=== PATIENT | male | born 1965 | race African-American/Black ===

== ENCOUNTER 2023-04-25 23:28 | Emergency (ER) | payer MEDICAID ==
[~2023-04-25] VITALS: Ht 177.8 cm; Wt 100.0 kg
[~2023-04-25 23:28] MED LIST: CLON0.1T2 PO; DIVA500T53 PO; RISP3TAB35 PO
[2023-04-26] MEDS ORDERED: SODIUM CHLORIDE 0.9% 1,000 ML IV ONE (01:00)
[2023-04-26 01:23] LABS: BASOPHILS % (AUTO) 0.9 % (0.0-2.0); EOSINOPHILS % (AUTO) 1.2 % (1.0-6.0); HEMATOCRIT 38.3 % (41-53); HEMOGLOBIN 12.9 g/dL (13.5-17.5); LYMPHOCYTES # (AUTO) 1.8 K/uL (1.0-4.8); MEAN CORPUSCULAR HEMOGLOBIN 31.6 pg (26.0-34.0); MEAN CORPUSCULAR HGB CONC 33.7 G/dL (31.0-37.0); MEAN CORPUSCULAR VOLUME 94 fL (80-100); MONOCYTES # (AUTO) 1.5 K/uL (0.1-1.0); NEUTROPHILS # (AUTO) 5.2 K/uL (1.8-7.7); NEUTROPHILS % (AUTO) 59.9 % (40.0-70.0); PLATELET COUNT (AUTO) 143 K/uL (150-450); RED BLOOD CELL COUNT(AUTO) 4.08 MIL/uL (4.50-5.90); RED CELL DISTRIBUTION WIDTH 14.9 % (11.5-14.5)
[2023-04-26 01:27] LABS: ANION GAP 10 mmol/L (8-16); CALCIUM, TOTAL 9.4 mg/dL (8.8-10.5); CARBON DIOXIDE 28 mmol/L (22-29); CHLORIDE 99 mmol/L (98-107); CREATININE 1.31 mg/dL (0.60-1.30); GLOMERULAR FILTR. RATE CALC > 60 mL/min (>60); GLUCOSE,RANDOM 111 mg/dL (70-110); POTASSIUM 4.5 mmol/L (3.5-5.1); SODIUM SERUM 136 mmol/L (136-145)
[2023-04-26 01:32] LABS: ALANINE AMINOTRANSFERASE 10 U/L (12-78); ALBUMIN 2.7 g/dL (3.4-5.0); ALKALINE PHOSPHATASE 83 U/L (46-116); ASPARTATE AMINOTRANSFERASE 16 U/L (15-37); TOTAL PROTEIN, SERUM 7.2 g/dL (6.4-8.2)
[2023-04-26 01:40] LABS: BILIRUBIN,TOTAL < 0.1 mg/dL (0.1-1.0)
[2023-04-26 06:14] VITALS: BP 117/67; PULSE 89; RESP 20; TEMP 97.3
== END 2023-04-26 06:23 | disposition home or self-care (01) ==
LOC: EMS 23:29
DX: R53.1 Weakness (principal); E11.9 Type 2 diabetes mellitus without complications; F41.9 Anxiety disorder, unspecified; F32.A Depression, unspecified; F20.9 Schizophrenia, unspecified; F17.210 Nicotine dependence, cigarettes, uncomplicated
CPT/HCPCS: 99285; 80053; 85025; 96360; 70450; G0480

== ENCOUNTER 2024-01-30 15:26 | Inpatient (IN) | payer MEDICAID ==
[~2024-01-30] VITALS: Ht 177.8 cm; Wt 75.0 kg
[2024-01-30] MEDS ORDERED: LEVO50 PO (16:02)
[2024-01-30] MEDS ORDERED: MELA5TAB40 PO (16:02)
[2024-01-30] MEDS ORDERED: ASPI-1444 PO (16:02)
[2024-01-30] MEDS ORDERED: QUET25TA PO (16:02)
[2024-01-30] MEDS ORDERED: CHOL25TA4 PO (16:02)
[2024-01-30] MEDS ORDERED: METO25 PO (16:02)
[2024-01-30] MEDS ORDERED: FERR325T27 PO (16:02)
[2024-01-30] MEDS ORDERED: DIPH-1130 PO (16:02)
[2024-01-30] MEDS ORDERED: QUET300T2 PO (16:02)
[2024-01-30] MEDS: LORazepam 2 MG/ML VIAL IM ONE (16:21)
[2024-01-30] MEDS: DiphenhydrAMINE HCL 50 MG/ML VIAL IM ONE (16:21)
[2024-01-30] MEDS: HALOPERIDOL LACTATE 5 MG/ML VIAL IM ONE (16:22)
[2024-01-30 16:44] LABS: COVID AG,FIA SOURCE NASAL SWAB
[2024-01-30 17:01] LABS: SARS-COV2 (COVID) ANTIGEN,FIA Negative (Negative)
[2024-01-30 19:39] LABS: BASOPHILS % (AUTO) 0.5 % (0.0-2.0); EOSINOPHILS % (AUTO) 2.4 % (1.0-6.0); HEMATOCRIT 41.6 % (41-53); HEMOGLOBIN 13.7 g/dL (13.5-17.5); LYMPHOCYTES # (AUTO) 2.8 K/uL (1.0-4.8); LYMPHOCYTES % (AUTO) 36.1 % (22.0-44.0); MEAN CORPUSCULAR HEMOGLOBIN 28.5 pg (26.0-34.0); MEAN CORPUSCULAR VOLUME 86 fL (80-100); MONOCYTES # (AUTO) 0.6 K/uL (0.1-1.0); MONOCYTES % (AUTO) 8.2 % (2.0-9.0); NEUTROPHILS % (AUTO) 52.8 % (40.0-70.0); PLATELET COUNT (AUTO) 254 K/uL (150-450); RED BLOOD CELL COUNT(AUTO) 4.81 MIL/uL (4.50-5.90); RED CELL DISTRIBUTION WIDTH 14.8 % (11.5-14.5); WHITE BLOOD COUNT (AUTO) 7.7 K/uL (4.5-11.0)
[2024-01-30 19:51] LABS: ANION GAP 8 mmol/L (8-16); CALCIUM, TOTAL 9.7 mg/dL (8.8-10.5); CARBON DIOXIDE 25 mmol/L (22-29); CHLORIDE 103 mmol/L (98-107); CREATININE 1.12 mg/dL (0.60-1.30); GLOMERULAR FILTR. RATE CALC > 60 mL/min (>60); GLUCOSE,RANDOM 93 mg/dL (70-110); POTASSIUM 4.7 mmol/L (3.5-5.1); SODIUM SERUM 136 mmol/L (136-145); UREA NITROGEN, BLOOD 11 mg/dL (7-18)
[2024-01-30 19:55] LABS: ALCOHOL, BLOOD (SERUM) < 3 mg/dL (0-10)
[2024-01-30 19:58] LABS: ALANINE AMINOTRANSFERASE 22 U/L (12-78); ALBUMIN 3.7 g/dL (3.4-5.0); ALKALINE PHOSPHATASE 110 U/L (46-116); ASPARTATE AMINOTRANSFERASE 28 U/L (15-37); BILIRUBIN,TOTAL 0.3 mg/dL (0.1-1.0); TOTAL PROTEIN, SERUM 8.7 g/dL (6.4-8.2)
[2024-01-31 02:32] VITALS: BP 151/89; PULSE 101; RESP 18; TEMP 97.9
[2024-01-31 02:33] LABS: APPEARANCE,URINE CLEAR (CLEAR); BILIRUBIN,URINE NEGATIVE (NEGATIVE); COLOR,URINE LIGHT YELLOW (YELLOW); GLUCOSE, URINE (UA) NEGATIVE (NEGATIVE); KETONES,URINE NEGATIVE (NEGATIVE); LEUKOCYTE ESTERASE ,URINE NEGATIVE (NEGATIVE); NITRATE,URINE NEGATIVE (NEGATIVE); OCCULT BLOOD,URINE NEGATIVE (NEGATIVE); PROTEIN,URINE TRACE mg/dL (NEGATIVE); SPECIFIC GRAVITIY, URINE 1.017 (1.003-1.030); UROBILINOGEN,URINE <=1.0 mg/dL (<=1.0)
[2024-01-31] MEDS: HALOPERIDOL 5 MG TABLET PO PRN (02:34)
[2024-01-31] MEDS: LORazepam 2 MG TABLET PO PRN (02:34)
[2024-01-31 02:43] LABS: ALCOHOL, URINE DRUG SCREEN NEGATIVE (NEGATIVE); AMPHET/METH SCREEN,URINE NEGATIVE (NEGATIVE); BACTERIA,URINE None Seen /HPF (None Seen); BARBITURATE SCREEN, URINE NEGATIVE (NEGATIVE); BENZODIAZEPINES SCREEN,URINE NEGATIVE (NEGATIVE); CANNABINOID SCREEN,URINE NEGATIVE (NEGATIVE); COCAINE SCREEN,URINE NEGATIVE (NEGATIVE); METHADONE SCREEN, URINE NEGATIVE (NEGATIVE); OPIATE SCREEN,URINE NEGATIVE (NEGATIVE); PHENCYCLIDINE SCREEN,URINE NEGATIVE (NEGATIVE); RBC,URINE None Seen /HPF (0-2); SQUAMOUS EPITHELIAL CELL,UR Few /LPF (None Seen); WBC,URINE None Seen /HPF (0-5)
[2024-01-31] MEDS: ZOLPIDEM TARTRATE 10 MG TABLET PO PRN (02:51)
[2024-01-31] MEDS ORDERED: ALBUTEROL SULFATE HFA 90 MCG/PUFF 8 GM INHALER IH PRN ×2 (06:00→11:15)
[2024-01-31] MEDS ORDERED: LOPERAMIDE HCL 2 MG CAPSULE PO PRN ×2 (06:00→11:15)
[2024-01-31] MEDS ORDERED: PETROLATUM,WHITE 28 GM JELLY TP PRN ×2 (06:00→11:15)
[2024-01-31] MEDS ORDERED: MAGNESIUM HYDROXIDE SUSPENSION 30 ML UDCUP PO PRN ×2 (06:00→11:15)
[2024-01-31] MEDS ORDERED: ONDANSETRON HCL 4 MG TABLET PO PRN ×2 (06:00→11:15)
[2024-01-31] MEDS ORDERED: DOCUSATE SODIUM 100 MG CAPSULE PO PRN ×2 (06:00→11:15)
[2024-01-31] MEDS ORDERED: ACETAMINOPHEN 325 MG TABLET PO PRN ×2 (06:00→11:15)
[2024-01-31] MEDS ORDERED: CloNIDine HCL 0.1 MG TABLET PO PRN ×2 (06:00→11:15)
[2024-01-31] MEDS ORDERED: GuaiFENesin/D-METHORPHAN [SUGAR-FREE] 200-20MG/10 ML SYRUP UDCUP PO PRN ×2 (06:00→11:15)
[2024-01-31] MEDS ORDERED: NICOTINE 14 MG/24 HOUR PATCH TD PRN ×2 (06:00→11:15)
[2024-01-31] MEDS ORDERED: MAG HYDROX/ALUMINUM HYD/SIMETH ES 30 ML SUSPENSION UDCUP PO PRN ×2 (06:00→11:15)
[2024-01-31] MEDS ORDERED: IBUPROFEN 400 MG TABLET PO PRN ×2 (06:00→11:15)
[2024-01-31] MEDS ORDERED: DEXTROSE 50%-WATER 25 GM/50 ML SYRINGE IVP PRN (06:00)
[2024-01-31 11:30] LABS: GLUCOMETER DEV NAME(LOC) 3E.C; GLUCOSE,POINT OF CARE 107 MG/DL (70-110)
[2024-01-31 14:42] VITALS: BP 145/93; PULSE 115; RESP 18; TEMP 98.2
[2024-01-31] MEDS: FERROUS SULFATE 325 MG EC TABLET PO SCH (17:09)
[2024-01-31] MEDS: METOPROLOL TARTRATE 25 MG TABLET PO SCH (17:10)
[2024-01-31 17:56] LABS: GLUCOMETER DEV NAME(LOC) 3E.C; GLUCOSE,POINT OF CARE 105 MG/DL (70-110)
[2024-01-31 20:48] VITALS: BP 144/80; PULSE 90; RESP 18; TEMP 97
[2024-01-31] MEDS: MELATONIN 5 MG TABLET PO SCH (20:57)
[2024-01-31] MEDS: QUEtiapine FUMARATE 200 MG TABLET PO SCH (20:57)
[2024-01-31] MEDS: INSULIN LISPRO 100 UNITS/ML SQ PRN (21:19)
[2024-01-31 21:30] LABS: GLUCOMETER DEV NAME(LOC) 3E.C; GLUCOSE,POINT OF CARE 111 MG/DL (70-110)
[2024-02-01] MEDS: LEVOTHYROXINE SODIUM 50 MCG TABLET PO SCH (06:28)
[2024-02-01 07:31] LABS: GLUCOMETER DEV NAME(LOC) 3E.C; GLUCOSE,POINT OF CARE 133 MG/DL (70-110)
[2024-02-01] MEDS: CHOLECALCIFEROL (VIT D3) 1,000 UNITS [25 MCG] TABLET PO SCH (08:43)
[2024-02-01] MEDS: ASPIRIN 81 MG DR TABLET PO SCH (08:43)
[2024-02-01 08:45] VITALS: RESP 18
[2024-02-01 11:16] LABS: GLUCOMETER DEV NAME(LOC) 3E.C; GLUCOSE,POINT OF CARE 127 MG/DL (70-110)
[2024-02-01 12:28] LABS: CHOL/HDL RATIO 2.5 (4.2-7.3); THYROID STIMULATING HORMONE 1.74 uIU/mL (0.36-3.74)
[2024-02-01 17:51] LABS: GLUCOMETER DEV NAME(LOC) 3E.C; GLUCOSE,POINT OF CARE 108 MG/DL (70-110)
[2024-02-01 21:00] LABS: GLUCOMETER DEV NAME(LOC) 3E.C; GLUCOSE,POINT OF CARE 117 MG/DL (70-110)
[2024-02-01 21:37] VITALS: BP 155/92; PULSE 98; RESP 18; TEMP 98.3
[2024-02-02 06:10] LABS: GLUCOMETER DEV NAME(LOC) 3E.C; GLUCOSE,POINT OF CARE 138 MG/DL (70-110)
[2024-02-02 08:46] VITALS: BP 194/90; PULSE 105; RESP 17; TEMP 97.7
[2024-02-02 11:30] LABS: GLUCOMETER DEV NAME(LOC) 3E.C; GLUCOSE,POINT OF CARE 100 MG/DL (70-110)
[2024-02-02 17:50] LABS: GLUCOMETER DEV NAME(LOC) 3E.C; GLUCOSE,POINT OF CARE 110 MG/DL (70-110)
[2024-02-02 20:36] LABS: GLUCOMETER DEV NAME(LOC) 3E.C; GLUCOSE,POINT OF CARE 106 MG/DL (70-110)
[2024-02-02 21:21] VITALS: BP 153/95; PULSE 98; RESP 18; TEMP 98.2
[2024-02-03 06:10] LABS: GLUCOMETER DEV NAME(LOC) 3E.C; GLUCOSE,POINT OF CARE 115 MG/DL (70-110)
[2024-02-03 08:25] VITALS: BP 172/98; PULSE 120; RESP 16; TEMP 97
[2024-02-03 11:25] LABS: GLUCOMETER DEV NAME(LOC) 3E.C; GLUCOSE,POINT OF CARE 98 MG/DL (70-110)
== END 2024-02-03 15:15 | DRG 750 ==
LOC: EMS 15:36 → 3EC 01-31 00:20
PROVIDERS: ADMIT Psychiatry & Neurology Child & Adolescent Psychiatry; ATTEND Psychiatry & Neurology Child & Adolescent Psychiatry
DX: F20.9 Schizophrenia, unspecified (principal); G20.A1 Parkinson's disease without dyskinesia, without mention of fluctuations; J81.1 Chronic pulmonary edema; E03.9 Hypothyroidism, unspecified; F32.A Depression, unspecified; F41.9 Anxiety disorder, unspecified; I10 Essential (primary) hypertension; D64.9 Anemia, unspecified
CPT/HCPCS: 80053; 80061; 80307; 81001; 82140; 82962; 83036; 84443; 85025; 87081; 99285; G0480; J1200; J1630; J2060; Q9967

== ENCOUNTER 2024-02-04 14:17 | Inpatient (IN) | payer MEDICAID ==
[~2024-02-04] VITALS: Ht 172.7 cm; Wt 82.0 kg
[~2024-02-04 14:17] MED LIST changes: +ASPI-1444 PO; +CHOL25TA4 PO; -CLON0.1T2 PO; -DIVA500T53 PO; +FERR325T27 PO; +LEVO50 PO; +MELA5TAB40 PO; +METO25 PO; +QUET300T2 PO; -RISP3TAB35 PO
[2024-02-04 15:11] LABS: BASOPHILS % (AUTO) 0.7 % (0.0-2.0); EOSINOPHILS % (AUTO) 1.7 % (1.0-6.0); HEMATOCRIT 38.4 % (41-53); HEMOGLOBIN 12.9 g/dL (13.5-17.5); LYMPHOCYTES % (AUTO) 23.8 % (22.0-44.0); MEAN CORPUSCULAR HEMOGLOBIN 28.7 pg (26.0-34.0); MEAN CORPUSCULAR HGB CONC 33.5 G/dL (31.0-37.0); MEAN CORPUSCULAR VOLUME 86 fL (80-100); MONOCYTES # (AUTO) 0.7 K/uL (0.1-1.0); MONOCYTES % (AUTO) 7.6 % (2.0-9.0); NEUTROPHILS # (AUTO) 5.7 K/uL (1.8-7.7); NEUTROPHILS % (AUTO) 66.2 % (40.0-70.0); PLATELET COUNT (AUTO) 265 K/uL (150-450); RED BLOOD CELL COUNT(AUTO) 4.49 MIL/uL (4.50-5.90); RED CELL DISTRIBUTION WIDTH 14.8 % (11.5-14.5); WHITE BLOOD COUNT (AUTO) 8.6 K/uL (4.5-11.0)
[2024-02-04 15:28] LABS: ALCOHOL, BLOOD (SERUM) < 3 mg/dL (0-10)
[2024-02-04 15:33] LABS: ALANINE AMINOTRANSFERASE 27 U/L (12-78); ALKALINE PHOSPHATASE 131 U/L (46-116); ANION GAP 12 mmol/L (8-16); ASPARTATE AMINOTRANSFERASE 28 U/L (15-37); BILIRUBIN,TOTAL 0.2 mg/dL (0.1-1.0); CALCIUM, TOTAL 9.6 mg/dL (8.8-10.5); CARBON DIOXIDE 25 mmol/L (22-29); CHLORIDE 97 mmol/L (98-107); GLOMERULAR FILTR. RATE CALC > 60 mL/min (>60); GLUCOSE,RANDOM 105 mg/dL (70-110); POTASSIUM 4.2 mmol/L (3.5-5.1); SODIUM SERUM 134 mmol/L (136-145); TOTAL PROTEIN, SERUM 8.7 g/dL (6.4-8.2); UREA NITROGEN, BLOOD 12 mg/dL (7-18)
[2024-02-04 15:49] LABS: COVID AG,FIA SOURCE NASAL SWAB
[2024-02-04 16:15] LABS: SARS-COV2 (COVID) ANTIGEN,FIA Negative (Negative)
[2024-02-04] MEDS: QUEtiapine FUMARATE 200 MG TABLET PO ONE (22:48)
[2024-02-04 23:03] VITALS: BP 140/70; PULSE 99; RESP 18; TEMP 97.5
[2024-02-04 23:04] VITALS: BP 140/70; RESP 18; O2SAT 98
[2024-02-05] MEDS ORDERED: IBUPROFEN 400 MG TABLET PO PRN (06:45)
[2024-02-05] MEDS ORDERED: GuaiFENesin/D-METHORPHAN [SUGAR-FREE] 200-20MG/10 ML SYRUP UDCUP PO PRN (06:45)
[2024-02-05] MEDS ORDERED: NICOTINE 14 MG/24 HOUR PATCH TD PRN (06:45)
[2024-02-05] MEDS ORDERED: MAGNESIUM HYDROXIDE SUSPENSION 30 ML UDCUP PO PRN (06:45)
[2024-02-05] MEDS ORDERED: ONDANSETRON HCL 4 MG TABLET PO PRN (06:45)
[2024-02-05] MEDS ORDERED: PETROLATUM,WHITE 28 GM JELLY TP PRN (06:45)
[2024-02-05] MEDS ORDERED: DOCUSATE SODIUM 100 MG CAPSULE PO PRN (06:45)
[2024-02-05] MEDS ORDERED: ALBUTEROL SULFATE HFA 90 MCG/PUFF 8 GM INHALER IH PRN (06:45)
[2024-02-05] MEDS ORDERED: LOPERAMIDE HCL 2 MG CAPSULE PO PRN (06:45)
[2024-02-05] MEDS ORDERED: MAG HYDROX/ALUMINUM HYD/SIMETH ES 30 ML SUSPENSION UDCUP PO PRN (06:45)
[2024-02-05] MEDS ORDERED: ACETAMINOPHEN 325 MG TABLET PO PRN (06:45)
[2024-02-05] MEDS: LEVOTHYROXINE SODIUM 50 MCG TABLET PO SCH (07:07)
[2024-02-05] MEDS: FERROUS SULFATE 325 MG EC TABLET PO SCH (07:07)
[2024-02-05 08:30] VITALS: BP 148/87; PULSE 90; RESP 18; TEMP 97
[2024-02-05] MEDS: ASPIRIN 81 MG DR TABLET PO SCH (08:42)
[2024-02-05] MEDS: METOPROLOL TARTRATE 25 MG TABLET PO SCH (08:42)
[2024-02-05] MEDS: CHOLECALCIFEROL (VIT D3) 1,000 UNITS [25 MCG] TABLET PO SCH (08:42)
[2024-02-05 09:10] VITALS: BP 148/87; PULSE 90; RESP 18; TEMP 97
[2024-02-05 09:43] VITALS: BP 148/87; RESP 18; O2SAT 100
[2024-02-05] MEDS: QUEtiapine FUMARATE 200 MG TABLET PO SCH ×2 (10:15→20:57)
[2024-02-05] MEDS: LORazepam 2 MG TABLET PO PRN (15:41)
[2024-02-05 16:57] VITALS: BP 162/96; PULSE 96; RESP 18; TEMP 98.8
[2024-02-05] MEDS: MELATONIN 5 MG TABLET PO SCH (20:57)
[2024-02-05] MEDS ORDERED: MELATONIN 5 MG TABLET PO SCH (21:00)
[2024-02-05] MEDS: ZOLPIDEM TARTRATE 10 MG TABLET PO PRN (21:13)
[2024-02-06 07:56] LABS: CHOL/HDL RATIO 2.1 (4.2-7.3); THYROID STIMULATING HORMONE 2.6 uIU/mL (0.36-3.74)
[2024-02-06 09:17] VITALS: BP 162/90; PULSE 97; RESP 18; TEMP 97.7
[2024-02-06] MEDS: HALOPERIDOL 5 MG TABLET PO PRN (09:20)
[2024-02-06 13:07] LABS: APPEARANCE,URINE CLEAR (CLEAR); BILIRUBIN,URINE NEGATIVE (NEGATIVE); COLOR,URINE COLORLESS (YELLOW); GLUCOSE, URINE (UA) NEGATIVE (NEGATIVE); KETONES,URINE NEGATIVE (NEGATIVE); LEUKOCYTE ESTERASE ,URINE NEGATIVE (NEGATIVE); NITRATE,URINE NEGATIVE (NEGATIVE); OCCULT BLOOD,URINE NEGATIVE (NEGATIVE); PH,URINE 5.5 (5.0-8.0); PH,URINE DRUG SCREEN 5.5 (5.0-8.0); PROTEIN,URINE NEGATIVE (NEGATIVE); SPECIFIC GRAVITIY, URINE 1.005 (1.003-1.030); UROBILINOGEN,URINE <=1.0 mg/dL (<=1.0)
[2024-02-06 13:10] LABS: ALCOHOL, URINE DRUG SCREEN NEGATIVE (NEGATIVE); AMPHET/METH SCREEN,URINE NEGATIVE (NEGATIVE); BARBITURATE SCREEN, URINE NEGATIVE (NEGATIVE); BENZODIAZEPINES SCREEN,URINE NEGATIVE (NEGATIVE); CANNABINOID SCREEN,URINE NEGATIVE (NEGATIVE); COCAINE SCREEN,URINE NEGATIVE (NEGATIVE); METHADONE SCREEN, URINE NEGATIVE (NEGATIVE); OPIATE SCREEN,URINE NEGATIVE (NEGATIVE); PHENCYCLIDINE SCREEN,URINE NEGATIVE (NEGATIVE)
[2024-02-06 21:27] VITALS: RESP 18
[2024-02-07 10:22] VITALS: BP 158/82; PULSE 108; RESP 20; TEMP 97.4
[2024-02-07 20:48] VITALS: BP 140/80; PULSE 96; RESP 18; TEMP 96.7
[2024-02-08 15:34] VITALS: BP 116/65; PULSE 96; RESP 18; TEMP 97.6
[2024-02-08 20:33] VITALS: BP 163/95; PULSE 97; RESP 18; TEMP 97.6
[2024-02-09 08:16] VITALS: BP 195/114; PULSE 102; RESP 21; TEMP 97
[2024-02-09] MEDS: CloNIDine HCL 0.1 MG TABLET PO PRN (08:16)
[2024-02-09 20:19] VITALS: RESP 18
[2024-02-10 08:36] VITALS: BP 146/85; PULSE 103; RESP 19; TEMP 97.1
[2024-02-10 20:43] VITALS: RESP 19; TEMP 98.2
[2024-02-11 09:30] VITALS: BP 140/58; PULSE 113; RESP 18; TEMP 97.2
[2024-02-11] MEDS: DIVALPROEX SODIUM 500 MG DR TABLET PO SCH (17:40)
[2024-02-11 21:48] VITALS: RESP 18
[2024-02-12 09:07] VITALS: BP 168/90; PULSE 103; RESP 16; TEMP 96.9
[2024-02-13 08:45] VITALS: BP 160/94; PULSE 100; TEMP 97.6
[2024-02-13] MEDS: AmLODIPine BESYLATE 5 MG TABLET PO SCH (10:01)
[2024-02-13 16:29] VITALS: BP 137/87; PULSE 102; RESP 18
[2024-02-13 22:45] VITALS: BP 141/90; PULSE 97; RESP 18; TEMP 97.3
[2024-02-13 22:52] VITALS: BP 141/90; PULSE 97; RESP 19; TEMP 97.3
[2024-02-14 08:00] VITALS: BP 178/105; PULSE 118; RESP 18; TEMP 98.3
[2024-02-14 17:30] VITALS: BP 150/90; PULSE 111; RESP 18
[2024-02-14 21:00] VITALS: BP 105/64; PULSE 86; RESP 18; TEMP 97.5
[2024-02-15 08:42] VITALS: BP 153/86; PULSE 102; RESP 18; TEMP 98.2
[2024-02-15 21:19] VITALS: RESP 18
[2024-02-16 08:30] VITALS: BP 144/79; PULSE 101; RESP 17; TEMP 97.5
[2024-02-16] MEDS: AmLODIPine BESYLATE 10 MG TABLET PO SCH (09:11)
[2024-02-16 21:45] VITALS: BP 127/80; PULSE 92; RESP 18; TEMP 98
[2024-02-17 10:30] VITALS: BP 149/84; PULSE 98; RESP 18; TEMP 97.2
[2024-02-17 20:10] VITALS: BP 131/81; PULSE 95; RESP 18; TEMP 98
[2024-02-18 08:48] VITALS: BP 147/74; PULSE 93; RESP 18; TEMP 97.6
[2024-02-18 20:20] VITALS: BP 137/84; PULSE 78; RESP 18; TEMP 98.2
[2024-02-19 09:00] VITALS: BP 150/90; PULSE 100; RESP 18; TEMP 97.6
== END 2024-02-19 18:26 | DRG 750 ==
LOC: EMS 14:56 → 3EC 20:57
PROVIDERS: ADMIT Psychiatry & Neurology Child & Adolescent Psychiatry; ATTEND Psychiatry & Neurology Child & Adolescent Psychiatry
PROC: GZHZZZZ Group Psychotherapy (ICD-10-PCS; principal; 2024-02-13)
DX: F25.0 Schizoaffective disorder, bipolar type (principal); G21.9 Secondary parkinsonism, unspecified; E87.1 Hypo-osmolality and hyponatremia; I48.91 Unspecified atrial fibrillation; Z20.822 Contact with and (suspected) exposure to COVID-19; I10 Essential (primary) hypertension; E11.9 Type 2 diabetes mellitus without complications; E03.9 Hypothyroidism, unspecified; G47.00 Insomnia, unspecified; Z93.3 Colostomy status; Z87.891 Personal history of nicotine dependence
CPT/HCPCS: 70450; 80053; 80061; 80164; 80307; 81003; 83036; 84443; 85025; 87081; 87481; 93005; 99291; G0480; Q9967; 36415-L1; 36415-TC; Z7502; Z7610

== ENCOUNTER 2024-02-25 16:08 | Inpatient (IN) | payer MEDICAID ==
[~2024-02-25] VITALS: Ht 170.2 cm; Wt 73.0 kg
[2024-02-25] MEDS: LORazepam 2 MG TABLET PO ONE (20:35)
[2024-02-26 08:31] LABS: COVID AG,FIA SOURCE NASAL SWAB
[2024-02-26 09:04] LABS: SARS-COV2 (COVID) ANTIGEN,FIA Negative (Negative)
[2024-02-26 15:54] VITALS: BP 157/98; PULSE 107; RESP 18; TEMP 98.4
[2024-02-26] MEDS: METOPROLOL SUCCINATE 25 MG ER TABLET PO SCH (17:15)
[2024-02-26] MEDS: FERROUS SULFATE 325 MG EC TABLET PO SCH (17:30)
[2024-02-27] MEDS: HALOPERIDOL 5 MG TABLET PO PRN (01:03)
[2024-02-27] MEDS: LORazepam 2 MG TABLET PO PRN (01:04)
[2024-02-27] MEDS: ZOLPIDEM TARTRATE 10 MG TABLET PO PRN (01:19)
[2024-02-27] MEDS: LEVOTHYROXINE SODIUM 50 MCG TABLET PO SCH (06:31)
[2024-02-27] MEDS: QUEtiapine FUMARATE 200 MG TABLET PO SCH ×2 (09:00→21:00)
[2024-02-27] MEDS: AmLODIPine BESYLATE 10 MG TABLET PO SCH (09:00)
[2024-02-27] MEDS: CHOLECALCIFEROL (VIT D3) 1,000 UNITS [25 MCG] TABLET PO SCH (09:00)
[2024-02-27] MEDS: DIVALPROEX SODIUM 500 MG DR TABLET PO SCH (09:00)
[2024-02-27] MEDS: ASPIRIN 81 MG CHEWABLE TABLET PO SCH (09:00)
[2024-02-27] MEDS ORDERED: NICOTINE 14 MG/24 HOUR PATCH TD PRN (13:30)
[2024-02-27] MEDS ORDERED: LOPERAMIDE HCL 2 MG CAPSULE PO PRN (13:30)
[2024-02-27] MEDS ORDERED: IBUPROFEN 400 MG TABLET PO PRN (13:30)
[2024-02-27] MEDS ORDERED: ALBUTEROL SULFATE HFA 90 MCG/PUFF 8 GM INHALER IH PRN (13:30)
[2024-02-27] MEDS ORDERED: ONDANSETRON HCL 4 MG TABLET PO PRN (13:30)
[2024-02-27] MEDS ORDERED: MAGNESIUM HYDROXIDE SUSPENSION 30 ML UDCUP PO PRN (13:30)
[2024-02-27] MEDS ORDERED: GuaiFENesin/D-METHORPHAN [SUGAR-FREE] 200-20MG/10 ML SYRUP UDCUP PO PRN (13:30)
[2024-02-27] MEDS ORDERED: DOCUSATE SODIUM 100 MG CAPSULE PO PRN (13:30)
[2024-02-27] MEDS ORDERED: CloNIDine HCL 0.1 MG TABLET PO PRN (13:30)
[2024-02-27] MEDS ORDERED: MAG HYDROX/ALUMINUM HYD/SIMETH ES 30 ML SUSPENSION UDCUP PO PRN (13:30)
[2024-02-27] MEDS ORDERED: PETROLATUM,WHITE 28 GM JELLY TP PRN (13:30)
[2024-02-27] MEDS ORDERED: ACETAMINOPHEN 325 MG TABLET PO PRN (13:30)
[2024-02-27] MEDS ORDERED: LORazepam 2 MG/ML VIAL ONE (15:43)
[2024-02-27] MEDS ORDERED: DiphenhydrAMINE HCL 50 MG/ML VIAL ONE (15:43)
[2024-02-27] MEDS ORDERED: HALOPERIDOL LACTATE 5 MG/ML VIAL ONE (15:43)
[2024-02-27] MEDS: LORazepam 2 MG/ML VIAL IM ONE (15:45)
[2024-02-27] MEDS: HALOPERIDOL LACTATE 5 MG/ML VIAL IM ONE (15:46)
[2024-02-27] MEDS: DiphenhydrAMINE HCL 50 MG/ML VIAL IM ONE (15:46)
[2024-02-28 08:00] VITALS: BP 155/81; PULSE 102; RESP 18; TEMP 97.6; O2SAT 99
[2024-02-28 08:41] LABS: HEMOGLOBIN A1C 6.3 % (3.8-5.6)
[2024-02-28 09:19] LABS: CHOL/HDL RATIO 2.2 (4.2-7.3); THYROID STIMULATING HORMONE 1.91 uIU/mL (0.36-3.74)
[2024-02-28 16:15] VITALS: BP 119/68; PULSE 98; RESP 18
[2024-02-28 20:46] VITALS: RESP 19
[2024-02-29 10:01] VITALS: BP 158/92; PULSE 101; RESP 18; TEMP 97.8; O2SAT 99
[2024-02-29] MEDS: QUEtiapine FUMARATE 200 MG TABLET PO ONE (11:49)
[2024-02-29] MEDS: HALOPERIDOL LACTATE 5 MG/ML VIAL IM PRN (11:51)
[2024-02-29 20:34] VITALS: BP 148/86; PULSE 96; RESP 18; TEMP 97.9; O2SAT 98
[2024-03-01 09:25] VITALS: BP 103/68; PULSE 80; RESP 18; O2SAT 99
[2024-03-01 16:47] VITALS: BP 117/75; PULSE 75; RESP 18
[2024-03-02 09:22] VITALS: BP 137/84; PULSE 88; RESP 18; O2SAT 100
[2024-03-02] MEDS ORDERED: DIVA-112 PO (14:52)
[2024-03-02] MEDS ORDERED: QUET200T PO (14:53)
== END 2024-03-02 16:00 | DRG 750 ==
LOC: EMS 16:19 → 3EC 02-26 14:56
PROVIDERS: ADMIT Psychiatry & Neurology Child & Adolescent Psychiatry; ATTEND Psychiatry & Neurology Child & Adolescent Psychiatry
PROC: GZHZZZZ Group Psychotherapy (ICD-10-PCS; principal; 2024-02-29)
DX: F25.0 Schizoaffective disorder, bipolar type (principal); G20.A1 Parkinson's disease without dyskinesia, without mention of fluctuations; E11.9 Type 2 diabetes mellitus without complications; D64.9 Anemia, unspecified; E03.9 Hypothyroidism, unspecified; F10.20 Alcohol dependence, uncomplicated; F32.A Depression, unspecified; G47.00 Insomnia, unspecified; Z20.822 Contact with and (suspected) exposure to COVID-19; F41.9 Anxiety disorder, unspecified; I10 Essential (primary) hypertension; Z79.899 Other long term (current) drug therapy; Z93.3 Colostomy status; Z87.891 Personal history of nicotine dependence
CPT/HCPCS: 80061; 80164; 83036; 84443; 87081; 99285; J1200; J1630; J2060

== ENCOUNTER 2024-03-08 12:18 | Inpatient (IN) | payer MEDICAID ==
[~2024-03-08] VITALS: Ht 175.3 cm; Wt 72.6 kg
[~2024-03-08 12:18] MED LIST changes: +DIVA-112 PO; +QUET200T PO
[2024-03-08] MEDS ORDERED: GUAI100S13 PO (13:12)
[2024-03-08] MEDS ORDERED: AMLO10TA55 PO (13:12)
[2024-03-08] MEDS ORDERED: MAG30ORA11 PO (13:12)
[2024-03-08] MEDS ORDERED: NICO-650 TD (13:12)
[2024-03-08] MEDS ORDERED: MAGN-169 PO (13:12)
[2024-03-08] MEDS ORDERED: LORA-999 PO (13:12)
[2024-03-08] MEDS ORDERED: CLON0.1T2 PO (13:12)
[2024-03-08] MEDS ORDERED: DIVA-112 PO (13:12)
[2024-03-08] MEDS ORDERED: DOCU100C33 PO (13:12)
[2024-03-08] MEDS ORDERED: ALBU18HF12 IH (13:12)
[2024-03-08] MEDS: DIVALPROEX SODIUM 500 MG ER TABLET PO ONE (13:19)
[2024-03-08] MEDS: QUEtiapine FUMARATE 100 MG TABLET PO ONE (13:19)
[2024-03-08] MEDS: METOPROLOL TARTRATE 25 MG TABLET PO ONE (13:20)
[2024-03-08] MEDS: AmLODIPine BESYLATE 10 MG TABLET PO ONE (13:20)
[2024-03-08 14:25] LABS: COVID AG,FIA SOURCE NASAL SWAB
[2024-03-08 14:53] LABS: SARS-COV2 (COVID) ANTIGEN,FIA Negative (Negative)
[2024-03-08 20:48] LABS: BASOPHILS % (AUTO) 1.1 % (0.0-2.0); EOSINOPHILS % (AUTO) 2.8 % (1.0-6.0); HEMATOCRIT 37.8 % (41-53); HEMOGLOBIN 12.7 g/dL (13.5-17.5); LYMPHOCYTES # (AUTO) 2.4 K/uL (1.0-4.8); LYMPHOCYTES % (AUTO) 33.5 % (22.0-44.0); MEAN CORPUSCULAR HEMOGLOBIN 28.8 pg (26.0-34.0); MEAN CORPUSCULAR HGB CONC 33.6 G/dL (31.0-37.0); MEAN CORPUSCULAR VOLUME 86 fL (80-100); MONOCYTES # (AUTO) 0.8 K/uL (0.1-1.0); MONOCYTES % (AUTO) 11.5 % (2.0-9.0); NEUTROPHILS # (AUTO) 3.6 K/uL (1.8-7.7); NEUTROPHILS % (AUTO) 51.1 % (40.0-70.0); PLATELET COUNT (AUTO) 223 K/uL (150-450); RED CELL DISTRIBUTION WIDTH 15.3 % (11.5-14.5); WHITE BLOOD COUNT (AUTO) 7.1 K/uL (4.5-11.0)
[2024-03-08 21:00] LABS: ANION GAP 8 mmol/L (8-16); CALCIUM, TOTAL 9.6 mg/dL (8.8-10.5); CARBON DIOXIDE 26 mmol/L (22-29); CHLORIDE 96 mmol/L (98-107); CREATININE 0.88 mg/dL (0.60-1.30); GLOMERULAR FILTR. RATE CALC > 60 mL/min (>60); GLUCOSE,RANDOM 108 mg/dL (70-110); POTASSIUM 3.9 mmol/L (3.5-5.1); SODIUM SERUM 130 mmol/L (136-145); UREA NITROGEN, BLOOD 6 mg/dL (7-18)
[2024-03-08 21:07] LABS: ALCOHOL, BLOOD (SERUM) < 3 mg/dL (0-10)
[2024-03-09] MEDS: HALOPERIDOL LACTATE 5 MG/ML VIAL IM ONE (05:25)
[2024-03-09] MEDS: DiphenhydrAMINE HCL 50 MG/ML VIAL IM ONE (05:25)
[2024-03-09] MEDS: LORazepam 2 MG/ML VIAL IM ONE (05:25)
[2024-03-09 10:38] LABS: ALCOHOL, URINE DRUG SCREEN NEGATIVE (NEGATIVE); AMPHET/METH SCREEN,URINE NEGATIVE (NEGATIVE); BARBITURATE SCREEN, URINE NEGATIVE (NEGATIVE); BENZODIAZEPINES SCREEN,URINE NEGATIVE (NEGATIVE); CANNABINOID SCREEN,URINE NEGATIVE (NEGATIVE); COCAINE SCREEN,URINE NEGATIVE (NEGATIVE); METHADONE SCREEN, URINE NEGATIVE (NEGATIVE); OPIATE SCREEN,URINE NEGATIVE (NEGATIVE); PHENCYCLIDINE SCREEN,URINE NEGATIVE (NEGATIVE)
[2024-03-09] MEDS ORDERED: PNEUMOCOCCAL VACCINE POLYVALENT 0.5 ML SYRINGE [PPSV23] IM. ONE (12:15)
[2024-03-09] MEDS ORDERED: NICOTINE 14 MG/24 HOUR PATCH TD PRN (13:30)
[2024-03-09] MEDS ORDERED: MAG HYDROX/ALUMINUM HYD/SIMETH ES 30 ML SUSPENSION UDCUP PO PRN (13:30)
[2024-03-09] MEDS ORDERED: ONDANSETRON HCL 4 MG TABLET PO PRN (13:30)
[2024-03-09] MEDS ORDERED: PETROLATUM,WHITE 28 GM JELLY TP PRN (13:30)
[2024-03-09] MEDS ORDERED: IBUPROFEN 400 MG TABLET PO PRN (13:30)
[2024-03-09] MEDS ORDERED: GuaiFENesin/D-METHORPHAN [SUGAR-FREE] 200-20MG/10 ML SYRUP UDCUP PO PRN (13:30)
[2024-03-09] MEDS ORDERED: MAGNESIUM HYDROXIDE SUSPENSION 30 ML UDCUP PO PRN (13:30)
[2024-03-09] MEDS ORDERED: LOPERAMIDE HCL 2 MG CAPSULE PO PRN (13:30)
[2024-03-09] MEDS ORDERED: ACETAMINOPHEN 325 MG TABLET PO PRN (13:30)
[2024-03-09] MEDS ORDERED: DOCUSATE SODIUM 100 MG CAPSULE PO PRN (13:30)
[2024-03-09] MEDS ORDERED: CloNIDine HCL 0.1 MG TABLET PO PRN (13:30)
[2024-03-09] MEDS ORDERED: ALBUTEROL SULFATE HFA 90 MCG/PUFF 8 GM INHALER IH PRN (13:30)
[2024-03-09 13:53] VITALS: BP 107/81; PULSE 91; RESP 18; TEMP 97.7
[2024-03-09] MEDS ORDERED: ZOLPIDEM TARTRATE 10 MG TABLET PO PRN (17:15)
[2024-03-09] MEDS: LORazepam 2 MG TABLET PO PRN (18:17)
[2024-03-09] MEDS: HALOPERIDOL 5 MG TABLET PO PRN (18:17)
[2024-03-09 20:58] VITALS: RESP 18
[2024-03-10 08:07] LABS: BASOPHILS % (AUTO) 0.8 % (0.0-2.0); EOSINOPHILS % (AUTO) 1.9 % (1.0-6.0); HEMATOCRIT 37.4 % (41-53); HEMOGLOBIN 12.5 g/dL (13.5-17.5); LYMPHOCYTES # (AUTO) 2.7 K/uL (1.0-4.8); LYMPHOCYTES % (AUTO) 30.3 % (22.0-44.0); MEAN CORPUSCULAR HGB CONC 33.5 G/dL (31.0-37.0); MEAN CORPUSCULAR VOLUME 87 fL (80-100); MONOCYTES # (AUTO) 1.1 K/uL (0.1-1.0); PLATELET COUNT (AUTO) 253 K/uL (150-450); RED BLOOD CELL COUNT(AUTO) 4.31 MIL/uL (4.50-5.90); RED CELL DISTRIBUTION WIDTH 15.5 % (11.5-14.5)
[2024-03-10 08:34] LABS: HEMOGLOBIN A1C 6.6 % (3.8-5.6)
[2024-03-10 08:35] LABS: ALANINE AMINOTRANSFERASE 25 U/L (12-78); ALBUMIN 3.6 g/dL (3.4-5.0); ALKALINE PHOSPHATASE 105 U/L (46-116); ANION GAP 7 mmol/L (8-16); ASPARTATE AMINOTRANSFERASE 36 U/L (15-37); BILIRUBIN,TOTAL 0.3 mg/dL (0.1-1.0); CALCIUM, TOTAL 9.6 mg/dL (8.8-10.5); CARBON DIOXIDE 26 mmol/L (22-29); CHLORIDE 91 mmol/L (98-107); CHOL/HDL RATIO 1.9 (4.2-7.3); CHOLESTEROL 154 mg/dL (131-200); CREATININE 1.32 mg/dL (0.60-1.30); GLOMERULAR FILTR. RATE CALC > 60 mL/min (>60); GLUCOSE,RANDOM 108 mg/dL (70-110); HDL CHOLESTEROL 82 mg/dL (40-60); LDL CHOL (CALC.) 64 mg/dL (0-130); POTASSIUM 4.6 mmol/L (3.5-5.1); THYROID STIMULATING HORMONE 3.15 uIU/mL (0.36-3.74); TOTAL PROTEIN, SERUM 8.3 g/dL (6.4-8.2); TRIGLYCERIDES 42 mg/dL (15-150); UREA NITROGEN, BLOOD 17 mg/dL (7-18)
[2024-03-10 09:12] LABS: SODIUM SERUM 124 mmol/L (136-145)
[2024-03-10 09:38] VITALS: BP 118/79; PULSE 84; RESP 18; TEMP 98.6
[2024-03-10] MEDS: AmLODIPine BESYLATE 10 MG TABLET PO SCH (10:23)
[2024-03-10] MEDS: SODIUM CHLORIDE 1 GM TABLET PO SCH (10:24)
[2024-03-10] MEDS: ASPIRIN 81 MG DR TABLET PO SCH (10:24)
[2024-03-10] MEDS: METOPROLOL TARTRATE 25 MG TABLET PO SCH (10:24)
[2024-03-10] MEDS: CHOLECALCIFEROL (VIT D3) 1,000 UNITS [25 MCG] TABLET PO SCH (10:25)
[2024-03-10] MEDS: BENZTROPINE MESYLATE 1 MG TABLET PO SCH (16:24)
[2024-03-10 16:33] VITALS: BP 132/78; PULSE 87; RESP 18
[2024-03-10] MEDS: FERROUS SULFATE 325 MG EC TABLET PO SCH (17:34)
[2024-03-10 20:35] VITALS: RESP 18; TEMP 98.2
[2024-03-10] MEDS: QUEtiapine FUMARATE 200 MG TABLET PO SCH (21:06)
[2024-03-11] MEDS: LEVOTHYROXINE SODIUM 50 MCG TABLET PO SCH (06:05)
[2024-03-11] MEDS: QUEtiapine FUMARATE 200 MG TABLET PO SCH (08:36)
[2024-03-11] MEDS: MULTIVITAMINS WITH MINERALS, THERAPEUTIC TABLET PO SCH (08:41)
[2024-03-11 09:30] VITALS: BP 137/66; PULSE 79; RESP 18; TEMP 97.8
[2024-03-11 10:06] LABS: GLUCOMETER DEV NAME(LOC) ERT.5; GLUCOSE,POINT OF CARE 90 MG/DL (70-110)
[2024-03-11 14:05] LABS: GLUCOMETER DEV NAME(LOC) 3E.C; GLUCOSE,POINT OF CARE 105 MG/DL (70-110)
[2024-03-11 14:06] LABS: ANION GAP 9 mmol/L (8-16); CALCIUM, TOTAL 9.4 mg/dL (8.8-10.5); CARBON DIOXIDE 24 mmol/L (22-29); CHLORIDE 90 mmol/L (98-107); CREATININE 0.95 mg/dL (0.60-1.30); GLOMERULAR FILTR. RATE CALC > 60 mL/min (>60); GLUCOSE,RANDOM 120 mg/dL (70-110); POTASSIUM 4.1 mmol/L (3.5-5.1); UREA NITROGEN, BLOOD 11 mg/dL (7-18)
[2024-03-11 14:07] LABS: SODIUM SERUM 123 mmol/L (136-145)
[2024-03-11] MEDS ORDERED: QUET200T PO (14:22)
[2024-03-11] MEDS: SODIUM CHLORIDE 1 GM TABLET PO ONE (14:23)
[2024-03-11 20:57] VITALS: RESP 18
[2024-03-12 10:42] LABS: CHLORIDE 91 mmol/L (98-107); POTASSIUM 5.3 mmol/L (3.5-5.1)
[2024-03-12 10:51] VITALS: RESP 19
[2024-03-12 10:57] LABS: SODIUM SERUM 124 mmol/L (136-145)
[2024-03-12 11:00] VITALS: BP 90/60; PULSE 83; RESP 20; TEMP 97
[2024-03-12 11:00] LABS: ANION GAP 12 mmol/L (8-16); CARBON DIOXIDE 21 mmol/L (22-29); CREATININE 1.31 mg/dL (0.60-1.30); GLOMERULAR FILTR. RATE CALC > 60 mL/min (>60); GLUCOSE,RANDOM 122 mg/dL (70-110); UREA NITROGEN, BLOOD 16 mg/dL (7-18)
[2024-03-12 11:26] LABS: BASOPHILS % (AUTO) 0.3 % (0.0-2.0); EOSINOPHILS % (AUTO) 0.2 % (1.0-6.0); HEMOGLOBIN 14.2 g/dL (13.5-17.5); LYMPHOCYTES # (AUTO) 2.3 K/uL (1.0-4.8); LYMPHOCYTES % (AUTO) 31.1 % (22.0-44.0); MEAN CORPUSCULAR HEMOGLOBIN 28.9 pg (26.0-34.0); MEAN CORPUSCULAR HGB CONC 33.8 G/dL (31.0-37.0); MEAN CORPUSCULAR VOLUME 86 fL (80-100); MONOCYTES # (AUTO) 0.6 K/uL (0.1-1.0); MONOCYTES % (AUTO) 8.7 % (2.0-9.0); NEUTROPHILS # (AUTO) 4.3 K/uL (1.8-7.7); NEUTROPHILS % (AUTO) 59.7 % (40.0-70.0); PLATELET COUNT (AUTO) 292 K/uL (150-450); RED CELL DISTRIBUTION WIDTH 15.8 % (11.5-14.5); WHITE BLOOD COUNT (AUTO) 7.3 K/uL (4.5-11.0)
[2024-03-12 11:41] LABS: GLUCOMETER DEV NAME(LOC) 3E.C; GLUCOSE,POINT OF CARE 109 MG/DL (70-110)
[2024-03-12 13:13] VITALS: BP 102/63; PULSE 85; RESP 18; TEMP 97.2
== END 2024-03-12 14:42 | disposition short-term general hospital (02) | DRG 750 ==
LOC: EMS 12:18 → 3EC 03-09 10:13
PROVIDERS: ADMIT Psychiatry & Neurology Child & Adolescent Psychiatry; ATTEND Psychiatry & Neurology Child & Adolescent Psychiatry
PROC: GZHZZZZ Group Psychotherapy (ICD-10-PCS; principal; 2024-03-11)
DX: F25.0 Schizoaffective disorder, bipolar type (principal); G20.A1 Parkinson's disease without dyskinesia, without mention of fluctuations; E87.1 Hypo-osmolality and hyponatremia; E11.9 Type 2 diabetes mellitus without complications; E03.9 Hypothyroidism, unspecified; D64.9 Anemia, unspecified; F10.20 Alcohol dependence, uncomplicated; F32.A Depression, unspecified; F41.9 Anxiety disorder, unspecified; Z20.822 Contact with and (suspected) exposure to COVID-19; K21.9 Gastro-esophageal reflux disease without esophagitis; G47.00 Insomnia, unspecified; I10 Essential (primary) hypertension; Z79.899 Other long term (current) drug therapy; Z87.891 Personal history of nicotine dependence; Z93.3 Colostomy status
CPT/HCPCS: 74176; 80048; 80053; 80061; 80307; 82962; 83036; 84443; 85025; 87081; 99285; G0480; J1200; J1630; J2060

== ENCOUNTER 2024-03-16 15:04 | Inpatient (IN) | payer MEDICAID ==
[~2024-03-16] VITALS: Ht 175.3 cm; Wt 72.9 kg
[~2024-03-16 15:04] MED LIST changes: +ALBU18HF12 IH; +AMLO10TA55 PO; +CLON0.1T2 PO; +DOCU100C33 PO; +GUAI100S13 PO; +LORA-999 PO; +MAG30ORA11 PO; +MAGN-169 PO; -MELA5TAB40 PO; +NICO-650 TD; -QUET300T2 PO
[2024-03-16] MEDS ORDERED: LOPERAMIDE HCL 2 MG CAPSULE PO PRN ×2 (18:00→19:00)
[2024-03-16] MEDS ORDERED: MAGNESIUM HYDROXIDE SUSPENSION 30 ML UDCUP PO PRN ×2 (18:00→19:00)
[2024-03-16] MEDS ORDERED: LORazepam 1 MG TABLET PO PRN (18:00)
[2024-03-16] MEDS ORDERED: PROMETHAZINE HCL 25 MG TABLET PO PRN (18:00)
[2024-03-16] MEDS ORDERED: ACETAMINOPHEN 325 MG TABLET PO PRN ×2 (18:00→19:00)
[2024-03-16] MEDS ORDERED: MAG HYDROX/ALUMINUM HYD/SIMETH ES 30 ML SUSPENSION UDCUP PO PRN ×2 (18:00→19:00)
[2024-03-16 18:37] VITALS: BP 120/77; PULSE 90; RESP 18; TEMP 97.4; O2SAT 100
[2024-03-16] MEDS ORDERED: PETROLATUM,WHITE 28 GM JELLY TP PRN (19:00)
[2024-03-16] MEDS ORDERED: IBUPROFEN 400 MG TABLET PO PRN (19:00)
[2024-03-16] MEDS ORDERED: GuaiFENesin/D-METHORPHAN [SUGAR-FREE] 200-20MG/10 ML SYRUP UDCUP PO PRN (19:00)
[2024-03-16] MEDS ORDERED: DOCUSATE SODIUM 100 MG CAPSULE PO PRN (19:00)
[2024-03-16] MEDS ORDERED: NICOTINE 14 MG/24 HOUR PATCH TD PRN (19:00)
[2024-03-16] MEDS ORDERED: ALBUTEROL SULFATE HFA 90 MCG/PUFF 8 GM INHALER IH PRN (19:00)
[2024-03-16] MEDS ORDERED: CloNIDine HCL 0.1 MG TABLET PO PRN (19:00)
[2024-03-16] MEDS ORDERED: ONDANSETRON HCL 4 MG TABLET PO PRN (19:00)
[2024-03-16] MEDS ORDERED: PNEUMOCOCCAL VACCINE POLYVALENT 0.5 ML SYRINGE [PPSV23] IM. ONE (19:15)
[2024-03-16] MEDS: LORazepam 2 MG TABLET PO PRN (19:52)
[2024-03-16] MEDS: HALOPERIDOL 5 MG TABLET PO PRN (19:52)
[2024-03-16 20:46] VITALS: RESP 18
[2024-03-16] MEDS: QUEtiapine FUMARATE 200 MG TABLET PO SCH (21:00)
[2024-03-16] MEDS: ZOLPIDEM TARTRATE 10 MG TABLET PO PRN (21:39)
[2024-03-17] MEDS: LEVOTHYROXINE SODIUM 50 MCG TABLET PO SCH (06:31)
[2024-03-17] MEDS: FERROUS SULFATE 325 MG EC TABLET PO SCH (06:31)
[2024-03-17 07:02] LABS: BASOPHILS % (AUTO) 0.5 % (0.0-2.0); EOSINOPHILS % (AUTO) 3.2 % (1.0-6.0); HEMOGLOBIN 12.8 g/dL (13.5-17.5); LYMPHOCYTES # (AUTO) 4.2 K/uL (1.0-4.8); LYMPHOCYTES % (AUTO) 44.7 % (22.0-44.0); MEAN CORPUSCULAR HEMOGLOBIN 28.5 pg (26.0-34.0); MEAN CORPUSCULAR HGB CONC 32.9 G/dL (31.0-37.0); MEAN CORPUSCULAR VOLUME 87 fL (80-100); MONOCYTES # (AUTO) 0.7 K/uL (0.1-1.0); NEUTROPHILS # (AUTO) 4.1 K/uL (1.8-7.7); NEUTROPHILS % (AUTO) 43.6 % (40.0-70.0); PLATELET COUNT (AUTO) 291 K/uL (150-450); RED BLOOD CELL COUNT(AUTO) 4.51 MIL/uL (4.50-5.90); RED CELL DISTRIBUTION WIDTH 15.7 % (11.5-14.5); WHITE BLOOD COUNT (AUTO) 9.4 K/uL (4.5-11.0)
[2024-03-17 07:25] LABS: ALANINE AMINOTRANSFERASE 23 U/L (12-78); ALBUMIN 3.6 g/dL (3.4-5.0); ALKALINE PHOSPHATASE 102 U/L (46-116); ANION GAP 6 mmol/L (8-16); ASPARTATE AMINOTRANSFERASE 29 U/L (15-37); BILIRUBIN,TOTAL 0.3 mg/dL (0.1-1.0); CARBON DIOXIDE 29 mmol/L (22-29); CHLORIDE 99 mmol/L (98-107); CHOL/HDL RATIO 2.2 (4.2-7.3); CHOLESTEROL 178 mg/dL (131-200); CREATININE 1.19 mg/dL (0.60-1.30); GLOMERULAR FILTR. RATE CALC > 60 mL/min (>60); GLUCOSE,RANDOM 96 mg/dL (70-110); HDL CHOLESTEROL 81 mg/dL (40-60); LDL CHOL (CALC.) 81 mg/dL (0-130); POTASSIUM 4.6 mmol/L (3.5-5.1); SODIUM SERUM 134 mmol/L (136-145); T4 (THYROXINE) 6.6 mcg/dL (4.7-13.3); THYROID STIMULATING HORMONE 3.66 uIU/mL (0.36-3.74); TOTAL PROTEIN, SERUM 8.1 g/dL (6.4-8.2); TRIGLYCERIDES 80 mg/dL (15-150); UREA NITROGEN, BLOOD 13 mg/dL (7-18)
[2024-03-17 07:53] LABS: HEMOGLOBIN A1C 6.9 % (3.8-5.6)
[2024-03-17 08:09] VITALS: BP 126/79; PULSE 104; RESP 18; TEMP 97; O2SAT 98
[2024-03-17] MEDS: SODIUM CHLORIDE 1 GM TABLET PO SCH (08:24)
[2024-03-17] MEDS: QUEtiapine FUMARATE 200 MG TABLET PO SCH (08:24)
[2024-03-17] MEDS: BENZTROPINE MESYLATE 1 MG TABLET PO SCH (08:24)
[2024-03-17] MEDS: MULTIVITAMINS WITH MINERALS, THERAPEUTIC TABLET PO SCH (08:24)
[2024-03-17] MEDS: AmLODIPine BESYLATE 10 MG TABLET PO SCH (08:25)
[2024-03-17] MEDS: CHOLECALCIFEROL (VIT D3) 1,000 UNITS [25 MCG] TABLET PO SCH (08:25)
[2024-03-17] MEDS: METOPROLOL TARTRATE 25 MG TABLET PO SCH (08:26)
[2024-03-17] MEDS: ASPIRIN 81 MG CHEWABLE TABLET PO SCH (08:26)
[2024-03-17] MEDS ORDERED: SODIUM CHLORIDE 1 GM TABLET PO SCH (09:00)
[2024-03-17 20:21] VITALS: RESP 18; O2SAT 99
[2024-03-18 09:42] LABS: BASOPHILS % (AUTO) 0.8 % (0.0-2.0); EOSINOPHILS % (AUTO) 4.3 % (1.0-6.0); HEMATOCRIT 31.9 % (41-53); HEMOGLOBIN 10.7 g/dL (13.5-17.5); LYMPHOCYTES # (AUTO) 2.3 K/uL (1.0-4.8); LYMPHOCYTES % (AUTO) 29.6 % (22.0-44.0); MEAN CORPUSCULAR HEMOGLOBIN 28.8 pg (26.0-34.0); MEAN CORPUSCULAR HGB CONC 33.4 G/dL (31.0-37.0); MEAN CORPUSCULAR VOLUME 86 fL (80-100); MONOCYTES # (AUTO) 0.8 K/uL (0.1-1.0); MONOCYTES % (AUTO) 9.7 % (2.0-9.0); NEUTROPHILS # (AUTO) 4.4 K/uL (1.8-7.7); NEUTROPHILS % (AUTO) 55.6 % (40.0-70.0); PLATELET COUNT (AUTO) 226 K/uL (150-450); RED CELL DISTRIBUTION WIDTH 15.2 % (11.5-14.5); WHITE BLOOD COUNT (AUTO) 7.8 K/uL (4.5-11.0)
[2024-03-18 10:00] LABS: ANION GAP 10 mmol/L (8-16); CALCIUM, TOTAL 8.5 mg/dL (8.8-10.5); CARBON DIOXIDE 22 mmol/L (22-29); CHLORIDE 89 mmol/L (98-107); CREATININE 0.92 mg/dL (0.60-1.30); GLOMERULAR FILTR. RATE CALC > 60 mL/min (>60); GLUCOSE,RANDOM 78 mg/dL (70-110); POTASSIUM 4.1 mmol/L (3.5-5.1); UREA NITROGEN, BLOOD 13 mg/dL (7-18)
[2024-03-18 10:03] LABS: SODIUM SERUM 121 mmol/L (136-145)
[2024-03-18 10:24] LABS: RBC MORPHOLOGY COMMENT NORMAL RBC MORPH
[2024-03-18 10:33] VITALS: BP 96/62; PULSE 86; RESP 16; TEMP 98.3; O2SAT 99
[2024-03-18] MEDS ORDERED: SODIUM CHLORIDE 1 GM TABLET PO SCH (13:00)
== END 2024-03-18 11:25 | disposition short-term general hospital (02) | DRG 750 ==
LOC: 3EC 17:51 → UNDOADMIN 18:04
PROVIDERS: ADMIT Psychiatry & Neurology Child & Adolescent Psychiatry; ATTEND Psychiatry & Neurology Child & Adolescent Psychiatry
DX: F20.0 Paranoid schizophrenia (principal); E87.1 Hypo-osmolality and hyponatremia; I10 Essential (primary) hypertension; E03.9 Hypothyroidism, unspecified; D64.9 Anemia, unspecified; G47.00 Insomnia, unspecified; J45.909 Unspecified asthma, uncomplicated
CPT/HCPCS: 80048; 80053; 80061; 83036; 84436; 84439; 84443; 85025; 87081

== ENCOUNTER 2024-03-18 11:25 | Inpatient (IN) | payer MEDICAID ==
[~2024-03-18] VITALS: Ht 177.8 cm; Wt 75.0 kg
[2024-03-18 12:00] VITALS: BP 73/43; PULSE 60; RESP 20; TEMP 97.4
[2024-03-18 12:31] VITALS: BP 110/47
[2024-03-18] MEDS: SODIUM CHLORIDE 0.9% 500 ML IV ONE (13:19)
[2024-03-18] MEDS: SODIUM CHLORIDE 0.9% 1,000 ML IV SCH (13:52)
[2024-03-18] MEDS ORDERED: ZOLPIDEM TARTRATE 5 MG TABLET PO PRN (14:15)
[2024-03-18] MEDS ORDERED: ONDANSETRON HCL 4 MG/2 ML VIAL IVP PRN (14:15)
[2024-03-18] MEDS ORDERED: ACETAMINOPHEN 325 MG TABLET PO PRN (14:15)
[2024-03-18] MEDS ORDERED: BISACODYL 10 MG RECTAL RECTAL SUPPOSITORY PR PRN (14:15)
[2024-03-18] MEDS ORDERED: MAGNESIUM HYDROXIDE SUSPENSION 30 ML UDCUP PO PRN (14:15)
[2024-03-18] MEDS ORDERED: ALBUTEROL SULFATE HFA 90 MCG/PUFF 8 GM INHALER IH PRN (14:15)
[2024-03-18] MEDS: HEPARIN SODIUM,PORCINE 5,000 UNITS/ML VIAL SQ SCH (15:48)
[2024-03-18 17:19] VITALS: BP 113/70; PULSE 66; RESP 18; TEMP 97.5
[2024-03-18] MEDS: FERROUS SULFATE 325 MG EC TABLET PO SCH (17:46)
[2024-03-18] MEDS: DOCUSATE SODIUM 100 MG CAPSULE PO SCH (21:00)
[2024-03-18] MEDS: LORazepam 2 MG/ML VIAL IVP ONE (21:46)
[2024-03-18] MEDS: QUEtiapine FUMARATE 200 MG TABLET PO SCH (22:03)
[2024-03-18 22:51] VITALS: BP 131/79; PULSE 84; RESP 18; TEMP 97.5
[2024-03-19] VITALS (8 sets, daily range): BP systolic 110–132; BP diastolic 48–99; PULSE 81–100; RESP 18–20; TEMP 97.1–98; O2SAT 97
[2024-03-19] MEDS: LEVOTHYROXINE SODIUM 50 MCG TABLET PO SCH (06:39)
[2024-03-19] MEDS: CHOLECALCIFEROL (VIT D3) 1,000 UNITS [25 MCG] TABLET PO SCH (08:17)
[2024-03-19] MEDS: ASPIRIN 81 MG DR TABLET PO SCH (08:17)
[2024-03-19] MEDS: QUEtiapine FUMARATE 200 MG TABLET PO SCH (08:17)
[2024-03-19] MEDS: PANTOPRAZOLE SODIUM 40 MG DR TABLET PO SCH (08:23)
[2024-03-19] MEDS: AmLODIPine BESYLATE 10 MG TABLET PO SCH (08:23)
[2024-03-19 11:46] LABS: ANION GAP 7 mmol/L (8-16); CARBON DIOXIDE 26 mmol/L (22-29); CHLORIDE 100 mmol/L (98-107); CREATININE 0.91 mg/dL (0.60-1.30); GLOMERULAR FILTR. RATE CALC > 60 mL/min (>60); GLUCOSE,RANDOM 92 mg/dL (70-110); POTASSIUM 4.4 mmol/L (3.5-5.1); SODIUM SERUM 133 mmol/L (136-145); UREA NITROGEN, BLOOD 10 mg/dL (7-18)
[2024-03-19 11:50] LABS: PHOSPHORUS 3.4 mg/dL (2.5-4.9)
[2024-03-19 11:54] LABS: BASOPHILS % (AUTO) 0.8 % (0.0-2.0); EOSINOPHILS % (AUTO) 1.9 % (1.0-6.0); HEMATOCRIT 36.5 % (41-53); HEMOGLOBIN 12.1 g/dL (13.5-17.5); LYMPHOCYTES # (AUTO) 2.1 K/uL (1.0-4.8); LYMPHOCYTES % (AUTO) 29.5 % (22.0-44.0); MEAN CORPUSCULAR HEMOGLOBIN 28.4 pg (26.0-34.0); MEAN CORPUSCULAR HGB CONC 33.1 G/dL (31.0-37.0); MEAN CORPUSCULAR VOLUME 86 fL (80-100); MONOCYTES # (AUTO) 0.4 K/uL (0.1-1.0); MONOCYTES % (AUTO) 5.5 % (2.0-9.0); NEUTROPHILS # (AUTO) 4.4 K/uL (1.8-7.7); NEUTROPHILS % (AUTO) 62.3 % (40.0-70.0); PLATELET COUNT (AUTO) 259 K/uL (150-450); RED BLOOD CELL COUNT(AUTO) 4.25 MIL/uL (4.50-5.90); RED CELL DISTRIBUTION WIDTH 15.9 % (11.5-14.5); WHITE BLOOD COUNT (AUTO) 7.1 K/uL (4.5-11.0)
[2024-03-20] VITALS (7 sets, daily range): BP systolic 116–134; BP diastolic 67–83; PULSE 80–95; RESP 18; TEMP 96.8–98.3; O2SAT 100
[2024-03-20] MEDS: LORazepam 2 MG/ML VIAL IM ONE (13:54)
[2024-03-20] MEDS: DiphenhydrAMINE HCL 50 MG/ML VIAL IM ONE (13:54)
[2024-03-20] MEDS: HALOPERIDOL LACTATE 5 MG/ML VIAL IM ONE (14:02)
[2024-03-21] VITALS (7 sets, daily range): BP systolic 119–159; BP diastolic 67–82; PULSE 79–101; RESP 18–20; TEMP 97.4–98.1
[2024-03-21] MEDS: DiphenhydrAMINE HCL 50 MG/ML VIAL IM ONE ×2 (15:13→23:51)
[2024-03-21] MEDS: LORazepam 2 MG/ML VIAL IM ONE ×2 (15:13→23:51)
[2024-03-21] MEDS: HALOPERIDOL LACTATE 5 MG/ML VIAL IM ONE ×2 (15:16→23:54)
[2024-03-21] MEDS ORDERED: LORazepam 2 MG/ML VIAL ONE (15:42)
[2024-03-21] MEDS ORDERED: HALOPERIDOL LACTATE 5 MG/ML VIAL IM ONE (23:45)
[2024-03-22 04:56] VITALS: BP 121/71; PULSE 81; RESP 18; TEMP 97.6
[2024-03-22 06:53] LABS: ANION GAP 7 mmol/L (8-16); CALCIUM, TOTAL 9.3 mg/dL (8.8-10.5); CARBON DIOXIDE 26 mmol/L (22-29); CHLORIDE 101 mmol/L (98-107); CREATININE 0.88 mg/dL (0.60-1.30); GLOMERULAR FILTR. RATE CALC > 60 mL/min (>60); GLUCOSE,RANDOM 95 mg/dL (70-110); POTASSIUM 3.8 mmol/L (3.5-5.1); SODIUM SERUM 134 mmol/L (136-145); UREA NITROGEN, BLOOD 10 mg/dL (7-18)
[2024-03-22 07:03] LABS: BASOPHILS % (AUTO) 0.6 % (0.0-2.0); HEMATOCRIT 32.9 % (41-53); LYMPHOCYTES # (AUTO) 1.6 K/uL (1.0-4.8); LYMPHOCYTES % (AUTO) 23.7 % (22.0-44.0); MEAN CORPUSCULAR HEMOGLOBIN 29.1 pg (26.0-34.0); MEAN CORPUSCULAR HGB CONC 33.6 G/dL (31.0-37.0); MEAN CORPUSCULAR VOLUME 87 fL (80-100); MONOCYTES # (AUTO) 0.5 K/uL (0.1-1.0); MONOCYTES % (AUTO) 7.3 % (2.0-9.0); NEUTROPHILS # (AUTO) 4.2 K/uL (1.8-7.7); NEUTROPHILS % (AUTO) 64.4 % (40.0-70.0); PLATELET COUNT (AUTO) 234 K/uL (150-450); RED BLOOD CELL COUNT(AUTO) 3.79 MIL/uL (4.50-5.90); RED CELL DISTRIBUTION WIDTH 15.7 % (11.5-14.5); WHITE BLOOD COUNT (AUTO) 6.6 K/uL (4.5-11.0)
[2024-03-22 07:12] VITALS: BP 128/74; PULSE 84; RESP 18; TEMP 97.9
[2024-03-22] MEDS ORDERED: LORazepam 2 MG TABLET PO PRN (10:30)
[2024-03-22] MEDS ORDERED: QUEtiapine FUMARATE 100 MG TABLET PO PRN (10:30)
[2024-03-22 15:16] VITALS: BP 134/78; PULSE 86; RESP 19; TEMP 98.1
[2024-03-22] MEDS: DIVALPROEX SODIUM 500 MG ER TABLET PO SCH (16:00)
[2024-03-22] MEDS: QUEtiapine FUMARATE 200 MG TABLET PO SCH (20:01)
[2024-03-22 20:13] VITALS: BP 141/94; PULSE 116; RESP 19; TEMP 98
[2024-03-23] MEDS ORDERED: AMLO-258 PO (12:39)
[2024-03-23] MEDS ORDERED: PANT-31 PO (12:41)
[2024-03-23] MEDS ORDERED: QUET200T PO (12:42)
[2024-03-23 21:37] LABS: COVID AG,FIA SOURCE NASAL SWAB
[2024-03-23 21:57] LABS: SARS-COV2 (COVID) ANTIGEN,FIA Negative (Negative)
== END 2024-03-23 23:28 | DRG 426 ==
LOC: 5S 11:25 → 6S 03-21 14:53
PROVIDERS: ADMIT Internal Medicine; ATTEND Internal Medicine
DX: E87.1 Hypo-osmolality and hyponatremia (principal); G93.41 Metabolic encephalopathy; E03.9 Hypothyroidism, unspecified; D64.9 Anemia, unspecified; G47.00 Insomnia, unspecified; I10 Essential (primary) hypertension; Z20.822 Contact with and (suspected) exposure to COVID-19; R60.0 Localized edema; F25.0 Schizoaffective disorder, bipolar type; J44.9 Chronic obstructive pulmonary disease, unspecified; Z91.199 Patient's noncompliance with other medical treatment and regimen due to unspecified reason
CPT/HCPCS: 80048; 83735; 84100; 85025; 99285; J1200; J1630; J1644; J2060; J7030; J7040

== ENCOUNTER 2024-03-23 20:10 | Inpatient (IN) | payer MEDICAID ==
[~2024-03-23] VITALS: Ht 172.7 cm; Wt 74.5 kg
[~2024-03-23 20:10] MED LIST changes: +AMLO-258 PO; +PANT-31 PO
[2024-03-24] MEDS ORDERED: HALOPERIDOL 5 MG TABLET PO PRN (01:15)
[2024-03-24 01:35] VITALS: BP 162/93; PULSE 120; RESP 18; TEMP 98
[2024-03-24 02:25] VITALS: BP 162/93; PULSE 120; RESP 18; TEMP 98.1; O2SAT 96
[2024-03-24] MEDS ORDERED: ALBUTEROL SULFATE HFA 90 MCG/PUFF 8 GM INHALER IH PRN (06:30)
[2024-03-24] MEDS ORDERED: NICOTINE 14 MG/24 HOUR PATCH TD PRN (06:30)
[2024-03-24] MEDS ORDERED: ONDANSETRON HCL 4 MG TABLET PO PRN (06:30)
[2024-03-24] MEDS ORDERED: IBUPROFEN 400 MG TABLET PO PRN (06:30)
[2024-03-24] MEDS ORDERED: PETROLATUM,WHITE 28 GM JELLY TP PRN (06:30)
[2024-03-24] MEDS ORDERED: CloNIDine HCL 0.1 MG TABLET PO PRN (06:30)
[2024-03-24] MEDS ORDERED: GuaiFENesin/D-METHORPHAN [SUGAR-FREE] 200-20MG/10 ML SYRUP UDCUP PO PRN (06:30)
[2024-03-24] MEDS ORDERED: MAGNESIUM HYDROXIDE SUSPENSION 30 ML UDCUP PO PRN (06:30)
[2024-03-24] MEDS ORDERED: LOPERAMIDE HCL 2 MG CAPSULE PO PRN (06:30)
[2024-03-24] MEDS ORDERED: DOCUSATE SODIUM 100 MG CAPSULE PO PRN (06:30)
[2024-03-24] MEDS ORDERED: ACETAMINOPHEN 325 MG TABLET PO PRN (06:30)
[2024-03-24] MEDS ORDERED: MAG HYDROX/ALUMINUM HYD/SIMETH ES 30 ML SUSPENSION UDCUP PO PRN (06:30)
[2024-03-24] MEDS ORDERED: PNEUMOCOCCAL VACCINE POLYVALENT 0.5 ML SYRINGE [PPSV23] IM. ONE (06:45)
[2024-03-24 10:29] VITALS: BP 133/85; PULSE 95; RESP 18; TEMP 97.5; O2SAT 98
[2024-03-24] MEDS: ASPIRIN 81 MG DR TABLET PO SCH (10:37)
[2024-03-24] MEDS: FERROUS SULFATE 325 MG EC TABLET PO SCH (10:37)
[2024-03-24] MEDS: CHOLECALCIFEROL (VIT D3) 1,000 UNITS [25 MCG] TABLET PO SCH (10:37)
[2024-03-24] MEDS: AmLODIPine BESYLATE 5 MG TABLET PO SCH (10:37)
[2024-03-24] MEDS: PANTOPRAZOLE SODIUM 40 MG DR TABLET PO SCH (10:37)
[2024-03-24] MEDS: LEVOTHYROXINE SODIUM 50 MCG TABLET PO SCH (10:37)
[2024-03-24 11:22] LABS: ANION GAP 8 mmol/L (8-16); CALCIUM, TOTAL 10.5 mg/dL (8.8-10.5); CARBON DIOXIDE 27 mmol/L (22-29); CHLORIDE 100 mmol/L (98-107); CREATININE 1.06 mg/dL (0.60-1.30); GLOMERULAR FILTR. RATE CALC > 60 mL/min (>60); GLUCOSE,RANDOM 103 mg/dL (70-110); POTASSIUM 3.9 mmol/L (3.5-5.1); SODIUM SERUM 135 mmol/L (136-145); UREA NITROGEN, BLOOD 8 mg/dL (7-18)
[2024-03-24 11:29] LABS: BASOPHILS % (AUTO) 0.8 % (0.0-2.0); EOSINOPHILS % (AUTO) 1.7 % (1.0-6.0); HEMATOCRIT 39.8 % (41-53); HEMOGLOBIN 13.2 g/dL (13.5-17.5); LYMPHOCYTES # (AUTO) 2.2 K/uL (1.0-4.8); LYMPHOCYTES % (AUTO) 26.7 % (22.0-44.0); MEAN CORPUSCULAR HGB CONC 33.2 G/dL (31.0-37.0); MEAN CORPUSCULAR VOLUME 87 fL (80-100); MONOCYTES # (AUTO) 0.5 K/uL (0.1-1.0); MONOCYTES % (AUTO) 5.7 % (2.0-9.0); NEUTROPHILS # (AUTO) 5.3 K/uL (1.8-7.7); NEUTROPHILS % (AUTO) 65.1 % (40.0-70.0); PLATELET COUNT (AUTO) 248 K/uL (150-450); RED BLOOD CELL COUNT(AUTO) 4.56 MIL/uL (4.50-5.90); RED CELL DISTRIBUTION WIDTH 15.9 % (11.5-14.5); WHITE BLOOD COUNT (AUTO) 8.1 K/uL (4.5-11.0)
[2024-03-24] MEDS: PALIPERIDONE PALMITATE 234 MG/1.5 ML SYRINGE IM ONE (16:49)
[2024-03-24] MEDS: DIVALPROEX SODIUM 500 MG ER TABLET PO SCH (20:45)
[2024-03-24] MEDS: OLANZapine 5 MG RAPDIS TABLET PO SCH (20:45)
[2024-03-25 08:43] VITALS: BP 158/90; PULSE 98; RESP 18; TEMP 98.7; O2SAT 98
[2024-03-25] MEDS: ETHYL ALCOHOL 62% ANTISEPTIC NASAL SANITIZER 0.6 ML AMPUL NASAL SCH (14:49)
[2024-03-25 15:23] LABS: BASOPHILS % (AUTO) 0.3 % (0.0-2.0); EOSINOPHILS % (AUTO) 1.6 % (1.0-6.0); HEMATOCRIT 38.8 % (41-53); HEMOGLOBIN 12.9 g/dL (13.5-17.5); LYMPHOCYTES # (AUTO) 2.1 K/uL (1.0-4.8); LYMPHOCYTES % (AUTO) 21.1 % (22.0-44.0); MEAN CORPUSCULAR HEMOGLOBIN 29.1 pg (26.0-34.0); MEAN CORPUSCULAR HGB CONC 33.1 G/dL (31.0-37.0); MEAN CORPUSCULAR VOLUME 88 fL (80-100); MONOCYTES # (AUTO) 0.6 K/uL (0.1-1.0); MONOCYTES % (AUTO) 5.8 % (2.0-9.0); NEUTROPHILS % (AUTO) 71.2 % (40.0-70.0); PLATELET COUNT (AUTO) 296 K/uL (150-450); RED BLOOD CELL COUNT(AUTO) 4.42 MIL/uL (4.50-5.90); RED CELL DISTRIBUTION WIDTH 16.2 % (11.5-14.5); WHITE BLOOD COUNT (AUTO) 9.9 K/uL (4.5-11.0)
[2024-03-25 15:34] LABS: HEMOGLOBIN A1C 6.6 % (3.8-5.6)
[2024-03-25 15:45] LABS: ALANINE AMINOTRANSFERASE 25 U/L (12-78); ALBUMIN 3.9 g/dL (3.4-5.0); ALKALINE PHOSPHATASE 99 U/L (46-116); ANION GAP 7 mmol/L (8-16); ASPARTATE AMINOTRANSFERASE 21 U/L (15-37); BILIRUBIN,TOTAL 0.5 mg/dL (0.1-1.0); CALCIUM, TOTAL 10.1 mg/dL (8.8-10.5); CARBON DIOXIDE 28 mmol/L (22-29); CHLORIDE 99 mmol/L (98-107); CREATININE 1.03 mg/dL (0.60-1.30); FREE T4 (FREE THYROXINE) 1.39 ng/dL (0.76-1.46); GLOMERULAR FILTR. RATE CALC > 60 mL/min (>60); GLUCOSE,RANDOM 110 mg/dL (70-110); SODIUM SERUM 134 mmol/L (136-145); T4 (THYROXINE) 9.6 mcg/dL (4.7-13.3); THYROID STIMULATING HORMONE 1.27 uIU/mL (0.36-3.74); TOTAL PROTEIN, SERUM 8.6 g/dL (6.4-8.2); UREA NITROGEN, BLOOD 11 mg/dL (7-18)
[2024-03-25] MEDS: OLANZapine 5 MG RAPDIS TABLET PO PRN (18:21)
[2024-03-25 22:25] VITALS: RESP 18
[2024-03-26 09:39] VITALS: BP 124/79; PULSE 112; RESP 18; TEMP 97.5; O2SAT 100
[2024-03-26] MEDS: LORazepam 2 MG TABLET PO PRN (10:32)
[2024-03-26 12:58] LABS: CHOL/HDL RATIO 1.9 (4.2-7.3)
[2024-03-26 21:21] VITALS: RESP 18
[2024-03-27] MEDS: ZOLPIDEM TARTRATE 10 MG TABLET PO PRN (01:41)
[2024-03-27 08:58] VITALS: BP 130/85; PULSE 126; RESP 18; TEMP 97.9; O2SAT 97
[2024-03-27 21:43] VITALS: BP 125/84; PULSE 98; RESP 18; TEMP 97.9; O2SAT 98
[2024-03-28 08:17] LABS: ANION GAP 6 mmol/L (8-16); CALCIUM, TOTAL 9.6 mg/dL (8.8-10.5); CARBON DIOXIDE 29 mmol/L (22-29); CHLORIDE 100 mmol/L (98-107); CREATININE 1.01 mg/dL (0.60-1.30); GLOMERULAR FILTR. RATE CALC > 60 mL/min (>60); GLUCOSE,RANDOM 132 mg/dL (70-110); POTASSIUM 4.4 mmol/L (3.5-5.1); SODIUM SERUM 135 mmol/L (136-145); UREA NITROGEN, BLOOD 11 mg/dL (7-18)
[2024-03-28] MEDS: PALIPERIDONE PALMITATE 156 MG/ML SYRINGE IM ONE (08:34)
[2024-03-28 10:19] VITALS: BP 140/81; PULSE 102; RESP 18; TEMP 97.8; O2SAT 99
[2024-03-28] MEDS: OLANZapine 10 MG RAPDIS TABLET PO SCH (20:43)
[2024-03-29 09:18] VITALS: BP 141/77; PULSE 121; RESP 20; TEMP 97.3; O2SAT 98
[2024-03-29] MEDS: GuanFACINE HCL 1 MG TABLET PO SCH (17:24)
[2024-03-29 21:06] VITALS: BP 129/59; PULSE 112; RESP 19; TEMP 98.1; O2SAT 97
[2024-03-30 10:32] VITALS: BP 144/81; PULSE 117; RESP 18; TEMP 97.7; O2SAT 99
[2024-03-30] MEDS: HALOPERIDOL LACTATE 5 MG/ML VIAL IM PRN (21:15)
[2024-03-30 23:04] VITALS: BP 124/80; PULSE 124; RESP 18; TEMP 97.7; O2SAT 97
[2024-03-31 08:34] VITALS: BP 119/68; PULSE 74; RESP 18; TEMP 97.7; O2SAT 99
[2024-03-31 20:13] VITALS: RESP 18
[2024-04-01 08:06] LABS: CALCIUM, TOTAL 9.8 mg/dL (8.8-10.5); CARBON DIOXIDE 27 mmol/L (22-29); CREATININE 1.04 mg/dL (0.60-1.30); GLOMERULAR FILTR. RATE CALC > 60 mL/min (>60); GLUCOSE,RANDOM 85 mg/dL (70-110); UREA NITROGEN, BLOOD 8 mg/dL (7-18)
[2024-04-01 08:27] LABS: ANION GAP 9 mmol/L (8-16); CHLORIDE 102 mmol/L (98-107); POTASSIUM 4.1 mmol/L (3.5-5.1); SODIUM SERUM 138 mmol/L (136-145)
[2024-04-01] MEDS ORDERED: HALOPERIDOL LACTATE 5 MG/ML VIAL IM PRN (09:00)
[2024-04-01] MEDS: OLANZapine 10 MG RAPDIS TABLET PO SCH (09:00)
[2024-04-01 17:00] VITALS: BP 114/68; PULSE 89; RESP 18; TEMP 97.3
[2024-04-01 20:42] VITALS: RESP 18
[2024-04-02 08:00] VITALS: BP 106/58; PULSE 84; RESP 18; TEMP 97; O2SAT 99
[2024-04-02] MEDS: TRIHEXYPHENIDYL HCL 5 MG TABLET PO SCH (18:07)
[2024-04-02 20:45] VITALS: BP 110/64; PULSE 89; RESP 18; TEMP 97.5; O2SAT 97
[2024-04-02] MEDS: MELATONIN 5 MG TABLET PO SCH (21:22)
[2024-04-02] MEDS: OLANZapine 10 MG RAPDIS TABLET PO SCH (21:22)
[2024-04-03 09:30] VITALS: BP 103/67; PULSE 96; RESP 18; TEMP 97; O2SAT 100
[2024-04-03] MEDS: OLANZapine 10 MG RAPDIS TABLET PO SCH (09:48)
[2024-04-03 22:25] VITALS: RESP 18
[2024-04-04 08:30] VITALS: BP 122/62; PULSE 102; RESP 18; TEMP 97.5; O2SAT 98
[2024-04-04 09:45] LABS: ANION GAP 2 mmol/L (8-16); CALCIUM, TOTAL 9.5 mg/dL (8.8-10.5); CARBON DIOXIDE 31 mmol/L (22-29); CHLORIDE 104 mmol/L (98-107); CREATININE 1.06 mg/dL (0.60-1.30); GLOMERULAR FILTR. RATE CALC > 60 mL/min (>60); GLUCOSE,RANDOM 96 mg/dL (70-110); POTASSIUM 4.5 mmol/L (3.5-5.1); SODIUM SERUM 137 mmol/L (136-145); UREA NITROGEN, BLOOD 8 mg/dL (7-18)
[2024-04-04] MEDS ORDERED: MELA5TAB40 PO (11:22)
[2024-04-04] MEDS ORDERED: TRIH5TAB3 PO (11:22)
[2024-04-04] MEDS ORDERED: GUAN1TAB2 PO (11:22)
[2024-04-04] MEDS ORDERED: OLAN10TA26 PO (11:22)
[2024-04-04] MEDS ORDERED: OMEG-135 PO (11:22)
[2024-04-04] MEDS ORDERED: DIVA500T69 PO (11:22)
[2024-04-04 21:36] VITALS: BP 131/80; PULSE 90; RESP 18; TEMP 97.4; O2SAT 98
[2024-04-05 08:17] VITALS: BP 111/72; PULSE 87; RESP 18; TEMP 98.6; O2SAT 98
[2024-04-05] MEDS ORDERED: ASPI-1450 PO (09:38)
[2024-04-05] MEDS ORDERED: AMLO-257 PO (09:39)
[2024-04-05 20:46] VITALS: RESP 18
[2024-04-06 11:09] VITALS: BP 109/63; PULSE 100; RESP 18; TEMP 97.8; O2SAT 99
== END 2024-04-06 21:52 | DRG 750 ==
LOC: 3EC 23:25
PROVIDERS: ADMIT Psychiatry & Neurology Psychiatry; ATTEND Psychiatry & Neurology Psychiatry
PROC: GZHZZZZ Group Psychotherapy (ICD-10-PCS; principal; 2024-03-24)
DX: F20.0 Paranoid schizophrenia (principal); G93.41 Metabolic encephalopathy; G20.A1 Parkinson's disease without dyskinesia, without mention of fluctuations; J81.1 Chronic pulmonary edema; F17.200 Nicotine dependence, unspecified, uncomplicated; G47.00 Insomnia, unspecified; E03.9 Hypothyroidism, unspecified; E55.9 Vitamin D deficiency, unspecified; D64.9 Anemia, unspecified; E87.1 Hypo-osmolality and hyponatremia; J44.9 Chronic obstructive pulmonary disease, unspecified; R63.1 Polydipsia; F90.9 Attention-deficit hyperactivity disorder, unspecified type; I10 Essential (primary) hypertension; Z72.89 Other problems related to lifestyle; Z93.3 Colostomy status
CPT/HCPCS: 80048; 80053; 80061; 80164; 83036; 84436; 84439; 84443; 85025; 87081; J1630; Q9967

== ENCOUNTER 2024-04-12 13:26 | Inpatient (IN) | payer MEDICAID ==
[~2024-04-12] VITALS: Ht 172.7 cm; Wt 74.0 kg
[~2024-04-12 13:26] MED LIST changes: -ALBU18HF12 IH; +AMLO-257 PO; -AMLO-258 PO; -AMLO10TA55 PO; -CHOL25TA4 PO; -CLON0.1T2 PO; -DIVA-112 PO; +DIVA500T69 PO; -DOCU100C33 PO; -GUAI100S13 PO; +GUAN1TAB2 PO; -LORA-999 PO; -MAG30ORA11 PO; -MAGN-169 PO; +MELA5TAB40 PO; -METO25 PO; -NICO-650 TD; +OLAN10TA26 PO; +OMEG-135 PO; -QUET200T PO; +TRIH5TAB3 PO
[2024-04-12] MEDS: LORazepam 2 MG TABLET PO ONE (16:37)
[2024-04-12] MEDS: OLANZapine 10 MG TABLET PO ONE (16:37)
[2024-04-12 16:43] LABS: APPEARANCE,URINE CLEAR (CLEAR); BILIRUBIN,URINE NEGATIVE (NEGATIVE); COLOR,URINE LIGHT YELLOW (YELLOW); GLUCOSE, URINE (UA) NEGATIVE (NEGATIVE); KETONES,URINE NEGATIVE (NEGATIVE); LEUKOCYTE ESTERASE ,URINE NEGATIVE (NEGATIVE); NITRATE,URINE NEGATIVE (NEGATIVE); OCCULT BLOOD,URINE NEGATIVE (NEGATIVE); PROTEIN,URINE NEGATIVE (NEGATIVE); SPECIFIC GRAVITIY, URINE 1.007 (1.003-1.030); UROBILINOGEN,URINE <=1.0 mg/dL (<=1.0)
[2024-04-12 16:57] LABS: AMPHET/METH SCREEN,URINE NEGATIVE (NEGATIVE); BARBITURATE SCREEN, URINE NEGATIVE (NEGATIVE); BENZODIAZEPINES SCREEN,URINE NEGATIVE (NEGATIVE); CANNABINOID SCREEN,URINE NEGATIVE (NEGATIVE); COCAINE SCREEN,URINE NEGATIVE (NEGATIVE); METHADONE SCREEN, URINE NEGATIVE (NEGATIVE); OPIATE SCREEN,URINE NEGATIVE (NEGATIVE); PHENCYCLIDINE SCREEN,URINE NEGATIVE (NEGATIVE)
[2024-04-12 16:58] LABS: ALCOHOL, URINE DRUG SCREEN NEGATIVE (NEGATIVE)
[2024-04-12 22:00] LABS: BASOPHILS % (AUTO) 0.5 % (0.0-2.0); EOSINOPHILS % (AUTO) 2.2 % (1.0-6.0); HEMATOCRIT 33.6 % (41-53); LYMPHOCYTES # (AUTO) 1.8 K/uL (1.0-4.8); LYMPHOCYTES % (AUTO) 27.4 % (22.0-44.0); MEAN CORPUSCULAR HEMOGLOBIN 29.3 pg (26.0-34.0); MEAN CORPUSCULAR HGB CONC 32.7 G/dL (31.0-37.0); MEAN CORPUSCULAR VOLUME 90 fL (80-100); MONOCYTES # (AUTO) 0.7 K/uL (0.1-1.0); MONOCYTES % (AUTO) 9.7 % (2.0-9.0); NEUTROPHILS % (AUTO) 60.2 % (40.0-70.0); PLATELET COUNT (AUTO) 245 K/uL (150-450); RED BLOOD CELL COUNT(AUTO) 3.75 MIL/uL (4.50-5.90); RED CELL DISTRIBUTION WIDTH 16.2 % (11.5-14.5); WHITE BLOOD COUNT (AUTO) 6.7 K/uL (4.5-11.0)
[2024-04-12 22:07] LABS: ANION GAP 3 mmol/L (8-16); CARBON DIOXIDE 31 mmol/L (22-29); CHLORIDE 100 mmol/L (98-107); CREATININE 1.05 mg/dL (0.60-1.30); GLOMERULAR FILTR. RATE CALC > 60 mL/min (>60); GLUCOSE,RANDOM 123 mg/dL (70-110); SODIUM SERUM 134 mmol/L (136-145); UREA NITROGEN, BLOOD 8 mg/dL (7-18)
[2024-04-12 22:13] LABS: ALANINE AMINOTRANSFERASE 13 U/L (12-78); ALBUMIN 2.7 g/dL (3.4-5.0); ALKALINE PHOSPHATASE 76 U/L (46-116); ASPARTATE AMINOTRANSFERASE 16 U/L (15-37); BILIRUBIN,TOTAL 0.2 mg/dL (0.1-1.0); TOTAL PROTEIN, SERUM 6.4 g/dL (6.4-8.2)
[2024-04-12 22:14] LABS: ALCOHOL, BLOOD (SERUM) < 3 mg/dL (0-10)
[2024-04-13 00:31] LABS: COVID AG,FIA SOURCE NASAL SWAB
[2024-04-13 00:47] LABS: SARS-COV2 (COVID) ANTIGEN,FIA Negative (Negative)
[2024-04-13 07:51] LABS: GLUCOMETER DEV NAME(LOC) ER.7; GLUCOSE,POINT OF CARE 73 MG/DL (70-110)
[2024-04-13] MEDS: QUEtiapine FUMARATE 100 MG TABLET PO PRN (10:11)
[2024-04-13] MEDS: LORazepam 2 MG TABLET PO PRN (10:12)
[2024-04-13 12:15] LABS: GLUCOMETER DEV NAME(LOC) ER.7; GLUCOSE,POINT OF CARE 82 MG/DL (70-110)
[2024-04-13 18:39] VITALS: BP 147/88; PULSE 93; RESP 18; TEMP 97.1; O2SAT 98
[2024-04-13] MEDS ORDERED: GuaiFENesin/D-METHORPHAN [SUGAR-FREE] 200-20MG/10 ML SYRUP UDCUP PO PRN (21:30)
[2024-04-13] MEDS ORDERED: HydrOXYzine PAMOATE 50 MG CAPSULE PO PRN (21:30)
[2024-04-13] MEDS ORDERED: LOPERAMIDE HCL 2 MG CAPSULE PO PRN (21:30)
[2024-04-13] MEDS ORDERED: ACETAMINOPHEN 325 MG TABLET PO PRN (21:30)
[2024-04-13] MEDS ORDERED: MAG HYDROX/ALUMINUM HYD/SIMETH ES 30 ML SUSPENSION UDCUP PO PRN (21:30)
[2024-04-13] MEDS ORDERED: MAGNESIUM HYDROXIDE SUSPENSION 30 ML UDCUP PO PRN (21:30)
[2024-04-13] MEDS ORDERED: PROMETHAZINE HCL 25 MG TABLET PO PRN (21:30)
[2024-04-13 21:33] VITALS: BP 145/80; PULSE 95; RESP 18; TEMP 97.2; O2SAT 99
[2024-04-13] MEDS: ZOLPIDEM TARTRATE 10 MG TABLET PO PRN (22:17)
[2024-04-14] MEDS: LEVOTHYROXINE SODIUM 50 MCG TABLET PO SCH (06:27)
[2024-04-14] MEDS: FERROUS SULFATE 325 MG EC TABLET PO SCH (07:00)
[2024-04-14] MEDS: THIAMINE 100 MG TABLET PO SCH (08:32)
[2024-04-14] MEDS: OMEGA-3/DHA/EPA/FISH OIL 1,000 MG CAPSULE PO SCH (08:33)
[2024-04-14] MEDS: PANTOPRAZOLE SODIUM 40 MG DR TABLET PO SCH (08:33)
[2024-04-14] MEDS: ASPIRIN 81 MG CHEWABLE TABLET PO SCH (08:33)
[2024-04-14] MEDS: AmLODIPine BESYLATE 5 MG TABLET PO SCH (08:33)
[2024-04-14] MEDS: TRIHEXYPHENIDYL HCL 5 MG TABLET PO SCH (08:34)
[2024-04-14] MEDS: GuanFACINE HCL 1 MG TABLET PO SCH (08:34)
[2024-04-14] MEDS: FOLIC ACID 1 MG TABLET PO SCH (08:34)
[2024-04-14 08:49] VITALS: BP 166/94; PULSE 123; RESP 16; TEMP 97.4; O2SAT 100
[2024-04-14] MEDS ORDERED: OMEGA-3/DHA/EPA/FISH OIL 1,000 MG CAPSULE PO SCH (09:00)
[2024-04-14] MEDS: MULTIVITAMINS WITH MINERALS, THERAPEUTIC TABLET PO SCH (12:33)
[2024-04-14] MEDS: DIVALPROEX SODIUM 500 MG ER TABLET PO SCH (20:57)
[2024-04-14] MEDS: MELATONIN 5 MG TABLET PO SCH (20:57)
[2024-04-14] MEDS: OLANZapine 5 MG RAPDIS TABLET PO SCH (20:57)
[2024-04-14 21:35] VITALS: RESP 18
[2024-04-15 10:48] VITALS: BP 122/75; PULSE 89; RESP 18; TEMP 96.7; O2SAT 99
[2024-04-15] MEDS: CloZAPine 25 MG TABLET PO SCH (11:45)
[2024-04-15] MEDS: GABAPENTIN 300 MG CAPSULE PO PRN (13:28)
[2024-04-15 22:16] VITALS: BP 120/73; PULSE 75; RESP 18; TEMP 97.2; O2SAT 99
[2024-04-16] MEDS: CloZAPine 25 MG TABLET PO SCH ×2 (08:41→21:09)
[2024-04-16 17:10] VITALS: BP 139/73; PULSE 81; RESP 18; TEMP 97.1; O2SAT 99
[2024-04-16 21:02] LABS: BASOPHILS % (AUTO) 0.6 % (0.0-2.0); EOSINOPHILS % (AUTO) 2.1 % (1.0-6.0); HEMATOCRIT 34.9 % (41-53); HEMOGLOBIN 11.4 g/dL (13.5-17.5); LYMPHOCYTES # (AUTO) 2.9 K/uL (1.0-4.8); LYMPHOCYTES % (AUTO) 36.1 % (22.0-44.0); MEAN CORPUSCULAR HEMOGLOBIN 29.7 pg (26.0-34.0); MEAN CORPUSCULAR HGB CONC 32.8 G/dL (31.0-37.0); MEAN CORPUSCULAR VOLUME 91 fL (80-100); MONOCYTES # (AUTO) 0.6 K/uL (0.1-1.0); MONOCYTES % (AUTO) 7.6 % (2.0-9.0); NEUTROPHILS # (AUTO) 4.3 K/uL (1.8-7.7); NEUTROPHILS % (AUTO) 53.6 % (40.0-70.0); PLATELET COUNT (AUTO) 251 K/uL (150-450); RED BLOOD CELL COUNT(AUTO) 3.84 MIL/uL (4.50-5.90); RED CELL DISTRIBUTION WIDTH 16.9 % (11.5-14.5); WHITE BLOOD COUNT (AUTO) 8.1 K/uL (4.5-11.0)
[2024-04-16 21:24] VITALS: RESP 19; TEMP 98.3
[2024-04-17] MEDS: CloZAPine 25 MG TABLET PO SCH ×2 (09:09→20:14)
[2024-04-17 11:25] VITALS: BP 128/84; PULSE 110; RESP 16; TEMP 98.6; O2SAT 99
[2024-04-17 20:35] VITALS: RESP 18
[2024-04-18] MEDS: CloZAPine 25 MG TABLET PO SCH (08:57)
[2024-04-18 09:04] VITALS: BP 150/92; PULSE 108; RESP 20; TEMP 97.3; O2SAT 97
[2024-04-18 20:39] VITALS: BP 143/83; PULSE 99; RESP 18; TEMP 98; O2SAT 97
[2024-04-19 09:08] VITALS: BP 147/74; PULSE 109; RESP 16; TEMP 97.6; O2SAT 100
[2024-04-19 20:26] VITALS: BP 141/83; PULSE 91; RESP 18; TEMP 97.5
[2024-04-20] MEDS: CloZAPine 25 MG TABLET PO SCH (09:31)
[2024-04-20 09:39] VITALS: BP 125/83; PULSE 99; RESP 18; TEMP 98.3; O2SAT 100
[2024-04-20 20:45] VITALS: BP 110/66; PULSE 93; RESP 18; TEMP 98.1; O2SAT 97
[2024-04-20] MEDS: CloZAPine 100 MG TABLET PO SCH (21:40)
[2024-04-21 09:00] VITALS: BP 151/70; PULSE 96; RESP 18; TEMP 96.8; O2SAT 98
[2024-04-21] MEDS: CloZAPine 25 MG TABLET PO SCH (09:02)
[2024-04-21] MEDS: GuanFACINE HCL 1 MG TABLET PO SCH (16:57)
[2024-04-21 20:19] VITALS: BP 152/97; PULSE 79; RESP 18; TEMP 97.1; O2SAT 98
[2024-04-21] MEDS: CloZAPine 100 MG TABLET PO SCH (21:28)
[2024-04-22 07:50] LABS: BASOPHILS % (AUTO) 0.6 % (0.0-2.0); EOSINOPHILS % (AUTO) 3.6 % (1.0-6.0); HEMATOCRIT 33.4 % (41-53); HEMOGLOBIN 11.1 g/dL (13.5-17.5); LYMPHOCYTES # (AUTO) 2.5 K/uL (1.0-4.8); LYMPHOCYTES % (AUTO) 40.1 % (22.0-44.0); MEAN CORPUSCULAR HEMOGLOBIN 30.1 pg (26.0-34.0); MEAN CORPUSCULAR HGB CONC 33.2 G/dL (31.0-37.0); MEAN CORPUSCULAR VOLUME 91 fL (80-100); MONOCYTES # (AUTO) 0.5 K/uL (0.1-1.0); MONOCYTES % (AUTO) 7.8 % (2.0-9.0); NEUTROPHILS % (AUTO) 47.9 % (40.0-70.0); PLATELET COUNT (AUTO) 225 K/uL (150-450); RED BLOOD CELL COUNT(AUTO) 3.68 MIL/uL (4.50-5.90); RED CELL DISTRIBUTION WIDTH 16.4 % (11.5-14.5); WHITE BLOOD COUNT (AUTO) 6.3 K/uL (4.5-11.0)
[2024-04-22] MEDS: CloZAPine 25 MG TABLET PO SCH (08:10)
[2024-04-22 10:03] VITALS: BP 129/100; PULSE 89; RESP 18; TEMP 98; O2SAT 99
[2024-04-22] MEDS: CloZAPine 100 MG TABLET PO SCH (20:52)
[2024-04-22] MEDS: OLANZapine 10 MG RAPDIS TABLET PO SCH (20:52)
[2024-04-22 21:02] VITALS: BP 135/76; PULSE 92; RESP 18; TEMP 97.5
[2024-04-23 08:28] VITALS: BP 132/75; PULSE 80; RESP 18; TEMP 97.7; O2SAT 100
[2024-04-23] MEDS: CloZAPine 100 MG TABLET PO SCH (10:08)
[2024-04-23 21:13] VITALS: BP 146/81; PULSE 88; RESP 18; TEMP 97.7; O2SAT 99
[2024-04-23 21:17] VITALS: BP 146/81; PULSE 88; RESP 18; TEMP 97.7; O2SAT 99
[2024-04-24 08:01] VITALS: BP 135/78; PULSE 93; RESP 18; TEMP 97.2
[2024-04-24 21:37] VITALS: RESP 18
[2024-04-25] MEDS: CloZAPine 25 MG TABLET PO SCH (08:22)
[2024-04-25 09:00] VITALS: BP 154/83; PULSE 89; RESP 17; TEMP 97.7
[2024-04-25] MEDS: CloZAPine 100 MG TABLET PO SCH (21:14)
[2024-04-26] MEDS: CloZAPine 25 MG TABLET PO SCH (08:06)
[2024-04-26 08:12] VITALS: BP 148/77; PULSE 83; RESP 16; TEMP 97.2; O2SAT 94
[2024-04-26 21:04] VITALS: BP 159/78; PULSE 88; RESP 18; TEMP 98; O2SAT 99
[2024-04-26] MEDS: CloZAPine 100 MG TABLET PO SCH (21:05)
[2024-04-27] MEDS: CloZAPine 100 MG TABLET PO SCH ×2 (08:02→21:02)
[2024-04-27 08:40] VITALS: BP 147/87; PULSE 95; RESP 18; O2SAT 96
[2024-04-27] MEDS ORDERED: CLOZ100T61 PO ×2 (17:47)
[2024-04-27] MEDS ORDERED: DIVA-153 PO (17:47)
[2024-04-27] MEDS ORDERED: OMEG-135 PO (17:47)
[2024-04-27 21:28] VITALS: BP 136/64; PULSE 89; RESP 18; TEMP 98; O2SAT 98
[2024-04-28 13:55] VITALS: RESP 19
[2024-04-28 20:59] VITALS: RESP 18
[2024-04-29 07:18] LABS: BASOPHILS % (AUTO) 0.4 % (0.0-2.0); EOSINOPHILS % (AUTO) 2.8 % (1.0-6.0); HEMATOCRIT 35.5 % (41-53); HEMOGLOBIN 11.8 g/dL (13.5-17.5); LYMPHOCYTES % (AUTO) 29.6 % (22.0-44.0); MEAN CORPUSCULAR HEMOGLOBIN 30.2 pg (26.0-34.0); MEAN CORPUSCULAR HGB CONC 33.1 G/dL (31.0-37.0); MEAN CORPUSCULAR VOLUME 91 fL (80-100); MONOCYTES # (AUTO) 0.7 K/uL (0.1-1.0); NEUTROPHILS # (AUTO) 3.7 K/uL (1.8-7.7); NEUTROPHILS % (AUTO) 56.2 % (40.0-70.0); PLATELET COUNT (AUTO) 167 K/uL (150-450); RED CELL DISTRIBUTION WIDTH 15.6 % (11.5-14.5); WHITE BLOOD COUNT (AUTO) 6.6 K/uL (4.5-11.0)
[2024-04-29 08:20] VITALS: BP 150/88; PULSE 88; RESP 19; TEMP 97.8; O2SAT 97
[2024-04-29 08:22] VITALS: BP 150/88; PULSE 88; RESP 19; TEMP 97.8; O2SAT 99
[2024-04-29 20:37] VITALS: BP 139/75; PULSE 80; RESP 18; TEMP 97.5
[2024-04-30 08:45] VITALS: BP 153/88; PULSE 95; RESP 18; TEMP 97.1; O2SAT 100
[2024-04-30 12:31] VITALS: BP 137/79; PULSE 90; RESP 18; O2SAT 98
[2024-04-30 16:32] VITALS: BP 140/72; PULSE 99; RESP 18; O2SAT 99
[2024-04-30 21:33] VITALS: RESP 18
[2024-04-30 21:46] VITALS: RESP 18
[2024-05-01 09:20] VITALS: BP 156/79; PULSE 95; RESP 20; TEMP 98; O2SAT 97
[2024-05-02 09:00] VITALS: BP 145/85; PULSE 98; RESP 18; TEMP 97.8; O2SAT 100
[2024-05-02] MEDS ORDERED: GUAN1TAB20 PO (12:09)
[2024-05-03 20:06] LABS: CLOZAPINE & NORCLOZAPINE 398 ng/mL; NORCLOZAPINE 74 ng/mL (Not Estab.)
== END 2024-05-02 16:23 | DRG 750 ==
LOC: EMS 13:29 → 3EC 04-13 18:47
PROVIDERS: ADMIT Psychiatry & Neurology Psychiatry; ATTEND Psychiatry & Neurology Psychiatry
PROC: GZHZZZZ Group Psychotherapy (ICD-10-PCS; principal; 2024-04-13)
PROC: GZ58ZZZ Individual Psychotherapy, Cognitive-Behavioral (ICD-10-PCS; 2024-04-13)
PROC: GZ56ZZZ Individual Psychotherapy, Supportive (ICD-10-PCS; 2024-04-13)
DX: F20.9 Schizophrenia, unspecified (principal); G20.A1 Parkinson's disease without dyskinesia, without mention of fluctuations; E11.9 Type 2 diabetes mellitus without complications; E03.9 Hypothyroidism, unspecified; D64.9 Anemia, unspecified; F17.210 Nicotine dependence, cigarettes, uncomplicated; F41.9 Anxiety disorder, unspecified; Z20.822 Contact with and (suspected) exposure to COVID-19; K21.9 Gastro-esophageal reflux disease without esophagitis; I48.91 Unspecified atrial fibrillation; J44.9 Chronic obstructive pulmonary disease, unspecified; I10 Essential (primary) hypertension; Z93.3 Colostomy status; Z65.3 Problems related to other legal circumstances; Z79.899 Other long term (current) drug therapy; Z63.9 Problem related to primary support group, unspecified; Z59.9 Problem related to housing and economic circumstances, unspecified; Z55.9 Problems related to education and literacy, unspecified
CPT/HCPCS: 80053; 80159; 80164; 80307; 81003; 82962; 84443; 85025; 87081; 99285; G0480; Q9967